=== PATIENT | female | born 1990 | race African-American/Black ===

== ENCOUNTER 2018-10-15 18:07 | Emergency (ER) | payer MEDICAID ==
[~2018-10-15] VITALS: Ht 172.7 cm; Wt 64.4 kg
[2018-10-15 18:39] VITALS: BP 105/64
[2018-10-15] MEDS ORDERED: LIDOCAINE 1% HCL (LOCAL ANESTH.) INJ 20ML MDV IJ ONE (19:45)
== END 2018-10-15 20:15 | disposition home or self-care (01) ==
LOC: ER 18:10
DX: N76.4 Abscess of vulva (principal); F12.10 Cannabis abuse, uncomplicated
CPT/HCPCS: 56405; 99284; J2001

== ENCOUNTER 2019-02-16 22:28 | Emergency (ER) | payer MEDICAID ==
[~2019-02-16] VITALS: Ht 172.7 cm; Wt 65.5 kg
[2019-02-16 22:38] VITALS: BP 139/67
== END 2019-02-17 04:00 | disposition left against medical advice (07) ==
LOC: ER 22:31
DX: R05 Cough (principal); J45.909 Unspecified asthma, uncomplicated; Z76.0 Encounter for issue of repeat prescription; Z53.21 Procedure and treatment not carried out due to patient leaving prior to being seen by health care provider

== ENCOUNTER 2025-04-06 20:30 | Emergency (ER) | payer MEDICAID ==
[~2025-04-06] VITALS: Ht 172.7 cm; Wt 78.6 kg
[2025-04-06 20:30] VITALS: BP 133/78; TEMP 98.7
[2025-04-06] MEDS ORDERED: ALBUAER3 IN (21:17)
[2025-04-06] MEDS ORDERED: PRED20TA2 PO (21:17)
--- NOTE | 2025-04-06 21:17 | ED.PDOC ---
SOB-HPI HPI Comments 35 year old female presents to ER with complaints of asthma exacerbation x 1 week. Patient with PMH of asthma, reports she has been experiencing intermittent episodes of shortness of breath x 1 week. Notes she has been using her albuterol inhaler with slight relief and denies any pain. Presents to ER ambulatory on arrival, with steady gait, in no distress with vitals stable. Denies fever, chest pain, palpitations, recent illness or any further symptoms/complaints Chief Complaint: Asthma Time Seen by MD: 20:50 Primary Care Provider: UNKNOWN Reviewed notes: Nurses Notes, Medications, Allergies Information Source: Patient Mode of Arrival: Ambulatory Past Medical History PAST MEDICAL HISTORY: Denies Surgical History: Denies all surgeries SHED HAND History: No Pertinent SHED HAND History Family History Family History: Unknown Social History Smoker: Non-Smoker Alcohol: Denies ETOH Use Drugs: Marijuana Lives In: Home Constitutional: denies: chills, diaphoresis, fatigue, fever, malaise, sweats, weakness, others EENTM: denies: blurred vision, double vision, ear bleeding, ear discharge, ear drainage, ear pain, ear ringing, eye pain, eye redness, hearing loss, mouth pain, mouth swelling, nasal discharge, nose bleeding, nose congestion, nose pain, photophobia, tearing, throat pain, throat swelling, voice changes, others Respiratory: reports: others (As stated in HPI) Cardiovascular: denies: chest pain, dizzy spells, diaphoresis, Dyspnea on exertion, edema, irregular heart beat, left arm pain, lightheadedness, palpitations, PND, syncope, others Gastrointestinal: denies: abdomen distended, abdominal pain, blood streaked bowels, constipated, diarrhea, dysphagia, difficulty swallowing, hematemesis, melena, nausea, poor appetite, poor fluid intake, rectal bleeding, rectal pain, vomiting, others Genitourinary: denies: abnormal vagina bleeding, burning, dyspareunia, dysuria, flank pain, frequency, hematuria, incontinence, pain, , vagina discharge, urgency, others Neurological: denies: dizziness, fainting, headache, left sided numbness, left sided weakness, numbness, paresthesia, pre-existing deficit, right sided numbness, right sided weakness, seizure, speech problems, tingling, tremors, weakness, others Musculoskeletal: denies: back pain, gout, joint pain, joint swelling, muscle pain, muscle stiffness, neck pain, others Integumetry: denies: bruises, change in color, change in hair/nails, dryness, laceration, lesions, lumps, rash, wounds, others Allergic/Immunocompromised: denies: Difficulty Healing, Frequent Infections, Hives, Itching, others Hematologic/Lymphatic: denies: anemia, blood clots, easy bleeding, easy bruising, swollen glands, others Endocrine: denies: excessive hunger, excessive sweating, excessive thirst, excessive urination, flushing, intolerance to cold, intolerance to heat, unexplained weight gain, unexplained weight loss, others Psychiatric: denies: anxiety, bipolar disorder, depression, hopeless, panic disorder, schizophrenia, sleepless, suicidal, others Physical Exam General Appearance: No Apparent Distress HEENT: Normal ENT Inspection, PERRL/EOMI, Pharynx Normal, TMs Normal Neck: Full Range of Motion, Non-Tender, Normal Respiratory: Chest Non-Tender, Decreased Breath Sounds (Slightly noted to bilateral upper lung nogueira), Lungs Clear, No Accessory Muscle Use, No Respiratory Distress Cardiovascular: No Murmur, No Gallop, Regular Rate/Rhythm Breast Exam: Deferred Gastrointestinal: NOT DONE Genitalia: Deferred Pelvic: Deferred Rectal: Deferred Extremities: Normal capillary refill, Normal range of motion Neurologic: Alert, No Motor Deficits, Normal Affect, Normal Mood, No Sensory Deficits Cerebellar Function: Normal Reflexes: Normal Skin: Dry, Normal Color, Warm Peripheral Pulses: 2+ carotid (R), 2+ carotid (L), 2+ Radial (R), 2+ Radial (L), 2+ Brachial (R), 2+ Brachial (L) Lymphatic: No Adenopathy Was a procedure done? Was a procedure done?: No Sedation Sedation?: No Differential Dx Differential Diagnosis: Pneumonia, Pulmonary Embolism, Respiratory Distress X-Ray, Labs, Meds, VS Vital Signs Date Time Temp Pulse Resp B/P (MAP) Pulse Ox O2 Delivery O2 Flow Rate FiO2 04/06/25 20:30 98.7 86 18 133/78 100 98.7 Duo nebulizer treatment ordered Patient had improvement in symptoms, denied any shortness of breath and in no distress prior to discharge Advised to drink plenty of fluids Advised to follow up with PCP in 1-2 days Patient verbalized understanding and agreeable with current plan of care Advised to return to ER immediately if symptoms worsen Time of 1ST Reevaluation: 20:54 Reevaluation 1ST: N/A Patient Education/Counseling: Diagnosis, Treatment, Prognosis, Need For Follow Up Family Education/Counseling: No Family Present SEPSIS Sepsis Screen Date sepsis recognized/suspect: Apr 06, 2025 Time Sepsis recognized/suspect: 2029 Recent Procedure: No On Antibiotic Therapy: No Respiratory Rate >20: No Heart Rate >90: No Temp<36 C (96.8 F) or >38.3 C: No SBP <90 or MAP <65 mmHG: No New Acute Mental Status Change: No Is the patient on CPAP, BIPAP,: No Vital Signs Date Time Temp Pulse Resp B/P (MAP) Pulse Ox O2 Delivery O2 Flow Rate FiO2 04/06/25 20:30 98.7 86 18 133/78 100 98.7 Departure 1 Departure Time of Disposition: 21:12 Impression: Primary Impression: Acute asthma exacerbation Qualified Codes: J45.21 - Mild intermittent asthma with (acute) exacerbation Disposition: 01 HOME / SELF CARE / HOMELESS Condition: Stable e-Prescriptions Prednisone (Prednisone) 20 Mg Tab 20 MG PO BID for 5 Days, #10 TAB 0 Refills Prov: ALEKSANDAR FIGUEROA 04/06/25 Albuterol Sulfate (VENTOLIN MDI) 90 Mcg Ih 2 PUFF IN Q6HPRN, #1 INH 0 Refills Prov: ALEKSANDAR FIGUEROA 04/06/25 Discharged With: Self Critical Care Note Critical Care Time?: No Stability Stability form required: No Heart Score Heart Score: Heart Score Response (Comments) Value History N/A 0 EKG N/A 0 Age N/A 0 Risk Factors N/A 0 Troponin N/A 0 Total 0 ALEKSANDAR FIGUEROA Apr 06, 2025 21:17
[2025-04-06] MEDS: IPRATROPIUM BROM 0.5 MG/2.5ML INH SOL NEB ONE (21:23)
[2025-04-06] MEDS: ALBUTEROL SULF 2.5 MG/0.5ML(0.5%) NEB SOLN NEB ONE (21:23)
[2025-04-06 21:53] VITALS: PULSE 91; RESP 18; O2SAT 99
== END 2025-04-06 21:56 | disposition home or self-care (01) ==
LOC: ER 20:30
DX: J45.901 Unspecified asthma with (acute) exacerbation (principal); Z79.899 Other long term (current) drug therapy
CPT/HCPCS: 94640

== ENCOUNTER 2025-04-09 14:31 | Inpatient (IN) | payer MEDICAID ==
[~2025-04-09] VITALS: Ht 172.7 cm; Wt 77.0 kg
[~2025-04-09 14:31] MED LIST: ALBUAER3 IN; PRED20TA2 PO
--- NOTE | 2025-04-09 15:33 | ED.PDOC ---
SOB-HPI HPI Comments This is a 35 year old female presenting to the ED with chief complaint of SOB. Patient reports that she has been experiencing SOB with associated chest tightness since last Saturday. Patient relays that she was seen on Saturday for the same complaint, however, even after a breathing treatment she did not have lasting relief. Patient denies any cough, fever, chills, headache, or N/V. Chief Complaint: Shortness of Breath Time Seen by MD: 15:32 Primary Care Provider: UNKNOWN Reviewed notes: Nurses Notes, Medications, Allergies Information Source: Patient Mode of Arrival: Ambulatory Severity: Moderate Timing: Hours Duration: Since onset Context: At Rest PE Risk Factors: None History of: None Prehospital treatment: None Modifying Factors: Nothing Quality: Tightness Radiation: No Radiation Past Medical History PAST MEDICAL HISTORY: Asthma Surgical History (Other): [employer]IATE History: No Pertinent [employer]IATE History Family History Family History: Reviewed,noncontributory to illness Social History Smoker: Non-Smoker Alcohol: Denies ETOH Use Drugs: Marijuana Lives In: Home Constitutional: denies: chills, diaphoresis, fatigue, fever, malaise, sweats, weakness, others EENTM: denies: blurred vision, double vision, ear bleeding, ear discharge, ear drainage, ear pain, ear ringing, eye pain, eye redness, hearing loss, mouth pain, mouth swelling, nasal discharge, nose bleeding, nose congestion, nose pa in, photophobia, tearing, throat pain, throat swelling, voice changes, others Respiratory: reports: shortness of breath; denies: cough, hemoptysis, orthopnea, SOB at rest, SOB with excertion, stridor, wheezing, others Cardiovascular: reports: chest pain; denies: dizzy spells, diaphoresis, Dyspnea on exertion, edema, irregular heart beat, left arm pain, lightheadedness, palpitations, PND, syncope, others Gastrointestinal: denies: abdomen distended, abdominal pain, blood streaked bowels, constipated, diarrhea, dysphagia, difficulty swallowing, hematemesis, melena, nausea, poor appetite, poor fluid intake, rectal bleeding, rectal pain, vomiting, others Genitourinary: denies: abnormal vagina bleeding, burning, dyspareunia, dysuria, flank pain, frequency, hematuria, incontinence, pain, , vagina discharge, urgency, others Neurological: denies: dizziness, fainting, headache, left sided numbness, left sided weakness, numbness, paresthesia, pre-existing deficit, right sided numbness, right sided weakness, seizure, speech problems, tingling, tremors, weakness, others Musculoskeletal: denies: back pain, gout, joint pain, joint swelling, muscle pain, muscle stiffness, neck pain, others Integumetry: denies: bruises, change in color, change in hair/nails, dryness, laceration, lesions, lumps, rash, wounds, others Allergic/Immunocompromised: denies: Difficulty Healing, Frequent Infections, Hives, Itching, others Hematologic/Lymphatic: denies: anemia, blood clots, easy bleeding, easy bruising, swollen glands, others Endocrine: denies: excessive hunger, excessive sweating, excessive thirst, excessive urination, flushing, intolerance to cold, intolerance to heat, unexplained weight gain, unexplained weight loss, others Psychiatric: denies: anxiety, bipolar disorder, depression, hopeless, panic disorder, schizophrenia, sleepless, suicidal, others All Other Systems: Reviewed and Negative Physical Exam General Appearance: Moderate Distress HEENT: Normal ENT Inspection, Pharynx Normal, TMs Normal Neck: Full Range of Motion, Non-Tender, Normal, Normal Inspection Respiratory: Chest Non-Tender, Lungs Clear, No Accessory Muscle Use, No Respiratory Distress, Normal Breath Sounds Cardiovascular: No Edema, No JVD, No Murmur, No Gallop, Normal Peripheral Pulses, Regular Rate/Rhythm Breast Exam: Deferred Gastrointestinal: No Organomegaly, Non Tender, No Pulsatile Mass, Normal Bowel Sounds, Soft Genitalia: Deferred Pelvic: Deferred Rectal: Deferred Extremities: No calf tenderness, Normal capillary refill, Normal inspection, Normal range of motion, Non-tender, No pedal edema Musculoskeletal : Apperance: Normal Neurologic: Alert, laborer heading II-XII nml as Tested, No Motor Deficits, Normal Affect, Normal Mood, No Sensory Deficits Cerebellar Function: Normal Reflexes: Normal Skin: Dry, Normal Color, Warm Lymphatic: No Adenopathy Was a procedure done? Was a procedure done?: No Differential Dx Differential Diagnosis: Asthma, Bronchitis, CHF, Pneumonia X-Ray, Labs, Meds, VS Vital Signs Date Time Temp Pulse Resp B/P (MAP) Pulse Ox O2 Delivery O2 Flow Rate FiO2 04/09/25 14:33 98.1 69 18 107/71 99 98.1 Lab Test 04/09/25 18:05 04/09/25 15:49 Range/Units Troponin I High Sensitivity 89 *H 79 *H </=34 ng/L White Blood Count 7.9 4.4-10.8 10^3/uL Red Blood Count 4.62 4.0-5.20 10^6/uL Hemoglobin 14.1 12.2-16.2 g/dL Hematocrit 42.3 36.0-46.0 % Mean Corpuscular Volume 91.5 80.0-100.0 fL Mean Corpuscular Hemoglobin 30.4 28.0-32.0 pg Mean Corpuscular Hemoglobin Concent 33.3 32.0-36.0 g/dL Red Cell Distribution Width 13.2 11.8-14.3 % Platelet Count 258 140-450 10^3/uL Mean Platelet Volume 8.8 6.9-10.8 fL Neutrophils (%) (Auto) 65.0 37.0-80.0 % Lymphocytes (%) (Auto) 28.5 10.0-50.0 % Monocytes (%) (Auto) 5.5 0.0-12.0 % Eosinophils (%) (Auto) 0.6 0.0-7.0 % Basophils (%) (Auto) 0.4 0.0-2.0 % Neutrophils # (Auto) 5.2 1.6-8.6 10 ^3/uL Lymphocytes # (Auto) 2.3 0.4-5.4 10 ^3/uL Monocytes # (Auto) 0.4 0-1.3 10 ^3/uL Eosinophils # (Auto) 0 0-0.8 10 ^3/uL Basophils # (Auto) 0 0-0.2 10 ^3/uL Nucleated Red Blood Cells 0.0 % D-Dimer, Quantitative < 0.19 0.0-0.49 mg/L FEU Sodium Level 140 136-145 mmol/L Potassium Level 4.0 3.5-5.1 mmol/L Chloride Level 109 H 98-107 mmol/L Carbon Dioxide Level 23 20-31 mmol/L Anion Gap 8 5-15 Blood Urea Nitrogen 8 L 9-23 mg/dL Creatinine 0.96 0.550-1.02 mg/dL Glomerular Filtration Rate Calc 80 >90 mL/min BUN/Creatinine Ratio 8.3 L 10.0-20.0 Serum Glucose 92 74-106 mg/dL Calcium Level 10.3 8.7-10.4 mg/dL Chest XR indicates: No acute cardiopulmonary disease. The patient's CBC is within normal limits The chemistry panel is within normal limits The D-dimer is within normal limits The patient's troponin level is 79 which is somewhat elevated The patient is being admitted at this time Images Reviewed?: Images reviewed and evaluated by me Time of 1ST Reevaluation: 19:00 Reevaluation 1ST: Unchanged Patient Education/Counseling: Diagnosis, Treatment, Prognosis Family Education/Counseling: No Family Present SEPSIS Sepsis Screen Date sepsis recognized/suspect: Apr 09, 2025 Time Sepsis recognized/suspect: 1435 Recent Procedure: No On Antibiotic Therapy: No Respiratory Rate >20: No Heart Rate >90: No Temp<36 C (96.8 F) or >38.3 C: No SBP <90 or MAP <65 mmHG: No New Acute Mental Status Change: No Is the patient on CPAP, BIPAP,: No Physician Orders Chest Two Views Routine (04/09/25 15:33) Heplock Iv (04/09/25 ) Troponin-I Hs (04/09/25 18:43) Heplock Iv (04/09/25 ) Electrocardigram (04/09/25 18:26) Electrocardigram (04/09/25 19:26) Electrocardigram (04/09/25 21:26) Vital Signs Date Time Temp Pulse Resp B/P (MAP) Pulse Ox O2 Delivery O2 Flow Rate FiO2 04/09/25 14:33 98.1 69 18 107/71 99 98.1 Laboratory Tests Test 04/09/25 15:49 White Blood Count 7.9 10^3/uL (4.4-10.8) Departure 1 Departure Time of Disposition: 19:01 Impression: Primary Impression: Generalized weakness Additional Impressions: Dyspnea Qualified Codes: R06.00 - Dyspnea, unspecified Elevated troponin Disposition: ADMITTED INPATIENT Admit to: [facility] Condition: Fair Critical Care Note Critical Care Time?: No Stability Stability form required: Yes Unstable for transfer: Telemetry monitoring (Telemetry monitoring required), ED Physician Assesment (Clinical assesment) Heart Score Heart Score: Heart Score Response (Comments) Value History N/A 0 EKG N/A 0 Age N/A 0 Risk Factors N/A 0 Troponin N/A 0 Total 0 I personally scribed for MARIBEL IBARRA MD ([email or web address]) on 04/09/25 at 15:33. Electronically submitted by Duran Villatoro ([email or web address]). I personally scribed for MARIBEL IBARRA MD ([email or web address]) on 04/09/25 at 17:57. Electronically submitted by Duran Villatoro ([email or web address]). MARIBEL IBARRA MD Apr 09, 2025 15:33
[2025-04-09 16:04] LABS: Hematocrit 42.3 % (36.0-46.0); Hemoglobin 14.1 g/dL (12.2-16.2); Mean Corpuscular Hemoglobin 30.4 pg (28.0-32.0); Mean Corpuscular Volume 91.5 fL (80.0-100.0); Nucleated Red Blood Cells % 0.0 %
--- NOTE | 2025-04-09 16:06 | DVH ---
XY CHEST TWO VIEWS ROUTINE CLINICAL HISTORY: sob COMPARISON: XR CHEST 2 VIEWS on DOS: 04/07/25, XR CHEST 2 VIEWS on DOS: 11/28/23 TECHNIQUE: Frontal and lateral view of the chest was obtained FINDINGS: Lines and Tubes: None Lungs: No focal consolidation. Pleura: No effusion. No pneumothorax. Cardiomediastinal contours: Unremarkable Bones: No acute osseous abnormality. IMPRESSION: No acute cardiopulmonary disease.
[2025-04-09 16:09] LABS: Potassium 4.0 mmol/L (3.5-5.1); Sodium 140 mmol/L (136-145)
[2025-04-09 16:10] LABS: Anion Gap 8 (5-15); Carbon Dioxide 23 mmol/L (20-31)
[2025-04-09 16:11] LABS: Calcium 10.3 mg/dL (8.7-10.4)
[2025-04-09 16:12] LABS: Chloride 109 mmol/L (98-107)
[2025-04-09 16:15] LABS: BUN/Creatinine Ratio 8.3 (10.0-20.0); Blood Urea Nitrogen 8 mg/dL (9-23); Glucose 92 mg/dL (74-106)
[2025-04-09] MEDS ORDERED: NITROGLYCERIN 0.4 MG SL TAB SL PRN (23:00)
[2025-04-09] MEDS ORDERED: MORPHINE SULFATE INJ 2 MG/ml SYRG IV PRN (23:00)
--- NOTE | 2025-04-09 23:50 | DVHHPRES ---
History of Present Illness Resident Creating Document: [place] BRITTON RESIDENT History of Present Illness History of Present Illness (HPI): Kaci Webster is a 35-year-old female with a known history of asthma who presented with complaints of shortness of breath and chest pain that has persisted for approximately one week. She describes the chest pain as sharp in nature, intermittent, and radiating to her left arm, with an intensity rated at 8 out of 10. She reports no specific aggravating or relieving factors. In addition to her respiratory symptoms, the patient notes a decreased appetite and expresses significant anxiety surrounding sleep, stating that she fears something might happen to her during the night and therefore attempts to stay awake. She denies experiencing fever, peripheral edema, or any recent contact with sick individuals. Notably, she mentions that her usual use of albuterol, which typically helps during asthma exacerbations, did not provide relief on this occasion. Past Medical History (PMH): asthma Past Surgical History (PSH): History of 4 abortions Family history (FH): History of hypertension in mother EtOH: Admits to occasional alcohol use Smoking /Vaping: Denies smoking Recreational Drugs: Admits to occasional marijuana use Residence: Lives with family Home Medications: Albuterol p.r.n. Allergies: No known allergies PCP: Dr. Richadrs Specialist relevant to admission: Cardiology Review of Systems Review of Systems General: patient denies fever, fatigue, weaknes, sweating. Complains of decreased appetite HEENT: No headaches, visiual changes, hearing loss, tinnitus, nasal congestion and discharge, and sore throat. Cardiovascular: Complains of chest pain and shortness of Breath Respiratory: No cough, and wheezing. Gastrointestinal: Denies nausea, vomiting, dysphagia, odynophagia, heartburn, abdominal pain, flatulence, bloating, diarrhea, constipation, change in stool, or blood in stool. Genitourinary: No dysuria, hematuria, discharge, frequency, urgency, nocturia, incontinence, and urinary retention. Endocrine: No heat or cold intolerance, polydipsia, polyuria, and polyphagia. Neurological: No dizziness, extremity weakness and numbness, tremors, gait disturbance, seizures, and memory impairment. Psychiatric: Denies depression, anxiety,or insomnia. Musculoskeletal: Denies neck pain, stiffness and swelling, back pain, muscle weakness, joint pain, stiffness, swelling, or limited range of motion. Skin: No rashes, itching, skin lesion, changes in hair, nail, skin texture and breast. Hematologic/Lymphatic: Denies easy bruising, bleeding tendencies, or lymph node enlargement. Allergies: Coded Allergies: NO KNOWN ALLERGIES (Unverified , 11/10/14) Medications Current Medications Medications Dose Ordered Sig/Linda Route Start Time Stop Time Status Last Admin Dose Admin Nitroglycerin 0.4 mg Q5MINP PRN SL 04/09/25 23:00 Morphine Sulfate 2 mg Q30M PRN IV 04/09/25 23:00 Exam Vital Signs Vital Signs Date Time Temp Pulse Resp B/P (MAP) Pulse Ox O2 Delivery O2 Flow Rate FiO2 04/09/25 22:48 98.5 70 18 120/79 (93) 98 98.5 04/09/25 19:49 Room Air Exam General Appearance: Alert, Oriented X3, Cooperative, No acute distress HEENT: Atraumatic, PERRLA, EOMI, Mucous membrane moist/pink Respiratory: Clear to auscultation, Normal air movement Cardiovascular: Regular rate, Normal S1, Normal S2, No murmurs, chest wall tenderness present Abdominal: Normal bowel sounds, Soft, No tenderness, No hepatospenomegaly, No masses Extremities: No clubbing, No cyanosis, No edema, Normal pulses, No tenderness/swelling Skin: No rashes, No breakdown, No significant lesion Neuro: Normal gait, Normal speech, Strength at 5/5 X4 ext, Normal tone, Sensation intact, Cranial nerves 3-12 NL, Reflexes 2+ Psych/Mental Status: Mental status NL, Mood NL Labs/Xrays Labs Test 04/09/25 20:10 04/09/25 15:49 Range/Units Troponin I High Sensitivity 81 *H </=34 ng/L White Blood Count 7.9 4.4-10.8 10^3/uL Red Blood Count 4.62 4.0-5.20 10^6/uL Hemoglobin 14.1 12.2-16.2 g/dL Hematocrit 42.3 36.0-46.0 % Mean Corpuscular Volume 91.5 80.0-100.0 fL Mean Corpuscular Hemoglobin 30.4 28.0-32.0 pg Mean Corpuscular Hemoglobin Concent 33.3 32.0-36.0 g/dL Red Cell Distribution Width 13.2 11.8-14.3 % Platelet Count 258 140-450 10^3/uL Mean Platelet Volume 8.8 6.9-10.8 fL Neutrophils (%) (Auto) 65.0 37.0-80.0 % Lymphocytes (%) (Auto) 28.5 10.0-50.0 % Monocytes (%) (Auto) 5.5 0.0-12.0 % Eosinophils (%) (Auto) 0.6 0.0-7.0 % Basophils (%) (Auto) 0.4 0.0-2.0 % Neutrophils # (Auto) 5.2 1.6-8.6 10 ^3/uL Lymphocytes # (Auto) 2.3 0.4-5.4 10 ^3/uL Monocytes # (Auto) 0.4 0-1.3 10 ^3/uL Eosinophils # (Auto) 0 0-0.8 10 ^3/uL Basophils # (Auto) 0 0-0.2 10 ^3/uL Nucleated Red Blood Cells 0.0 % D-Dimer, Quantitative < 0.19 0.0-0.49 mg/L FEU Sodium Level 140 136-145 mmol/L Potassium Level 4.0 3.5-5.1 mmol/L Chloride Level 109 H 98-107 mmol/L Carbon Dioxide Level 23 20-31 mmol/L Anion Gap 8 5-15 Blood Urea Nitrogen 8 L 9-23 mg/dL Creatinine 0.96 0.550-1.02 mg/dL Glomerular Filtration Rate Calc 80 >90 mL/min BUN/Creatinine Ratio 8.3 L 10.0-20.0 Serum Glucose 92 74-106 mg/dL Calcium Level 10.3 8.7-10.4 mg/dL SEPSIS Sepsis Screen Date sepsis recognized/suspect: Apr 09, 2025 Time Sepsis recognized/suspect: 1949 Recent Procedure: No On Antibiotic Therapy: No Respiratory Rate >20: No Heart Rate >90: No Temp<36 C (96.8 F) or >38.3 C: No SBP <90 or MAP <65 mmHG: No New Acute Mental Status Change: No Is the patient on CPAP, BIPAP,: No Physician Orders Heplock Iv (04/09/25 ) Heplock Iv (04/09/25 ) Electrocardigram (04/09/25 18:26) Electrocardigram (04/09/25 19:26) Electrocardigram (04/09/25 21:26) Admit (04/09/25 22:54) Nitroglycerin Sublingual (Ntrostat Subli (04/09/25 23:00) Morphine Sulfate Injection (04/09/25 23:00) Oxygen By Nasal Cannula (04/09/25 22:54) Stat Ekg For Chest Pain (04/09/25 22:54) Notify Md Of Changes From Base (04/09/25 22:54) Manager [employer] For 24 Hours (04/09/25 22:54) Emergency Dysrhythmia Protocol (04/09/25 22:54) Rhythm Strips Once Every Shift (04/09/25 22:54) Electrocardigram (04/09/25 23:14) Communication Order (04/09/25 23:14) Vital Signs Date Time Temp Pulse Resp B/P (MAP) Pulse Ox O2 Delivery O2 Flow Rate FiO2 04/09/25 22:48 98.5 70 18 120/79 (93) 98 98.5 04/09/25 19:49 61 20 100 Room Air 04/09/25 19:49 98.1 61 20 121/78 (92) 100 98.1 Laboratory Tests Test 04/09/25 15:49 White Blood Count 7.9 10^3/uL (4.4-10.8) Assessment/Plan Assessment/Plan Assessment and plan # Pericarditis - Elevated troponins - Cardiology consult - Follow Echo - Pain Medications - Follow ESR CRP results - Follow MILLIE results, if positive consider autoimmune workup # History of asthma - Albuterol and ipratropium nebulization - Outpatient follow up with PCP on discharge PUD prophylaxis: not needed DVT prophylaxis: brisk movement. Barriers to discharge: Medical diagnosis and management in progress. Patient lives with family. Independent for ADL. PCP: Dr. Richards Specialist Relevant To Admission: Cardiology Case discussed with Dr. Sanchez. Code Status: Full Code. Complex patient care discussion needed. Spend total 37 minutes for bedside assessment, case discussion and management. Plan discussed with: Patient My Orders Orders - [place] BRITTON RESIDENT Procedure Category Date Status Time Electrocardigram EKG 04/09/25 Logged 23:14 Communication Order ORDERS 04/09/25 Transmitted 23:14 Date of Service: Apr 09, 2025 Billing Provider: VERÓNICA SANCHEZ MD Common Visit Codes: 60337-OACWPPP INP/OBS CARE (HIGH) Secondary Visit Codes: 60209-[id number] CARE PLAN 30 MINUTES VIR[place]IA BRITTON RESIDENT Apr 09, 2025 23:50
[2025-04-10] VITALS (9 sets, daily range): BP systolic 93–129; BP diastolic 54–87; PULSE 52–66; RESP 14–20; TEMP 97.9–98; O2SAT 96–100
--- NOTE | 2025-04-10 04:19 | ECG ---
[facility] Test Date: 2025-04-10 Test Time: 00:25:56 Pat Name: ALVARO LANE Department: ED Room: 0286T Gender: F Pca: SCARLETT : 1990 Requested By: SEAN ORNELAS Order Number: [id number] Reading MD: Tomy Trujillo Measurements Intervals Reagan Rate: 48 P: 52 CA: 138 QRS: 70 QRSD: 101 T: 72 QT: 446 QTc: 399 Interpretive Statements Sinus bradycardia Electronically Signed On 04-12-2025 18:49:38 PDT by Tomy Trujillo Please click the below link to view image of tracing.
[2025-04-10] MEDS ORDERED: IPRATROPIUM BROM 0.5 MG/2.5ML INH SOL NEB PRN (04:30)
[2025-04-10] MEDS ORDERED: ALBUTEROL SULF 2.5 MG/0.5ML(0.5%) NEB SOLN NEB PRN (04:30)
[2025-04-10 04:39] LABS: Hematocrit 40.5 % (36.0-46.0); Hemoglobin 13.6 g/dL (12.2-16.2); Mean Corpuscular Hemoglobin 30.5 pg (28.0-32.0); Mean Corpuscular Volume 91.0 fL (80.0-100.0); Nucleated Red Blood Cells % 0.1 %
[2025-04-10 04:51] LABS: Alanine Aminotransferase 11 U/L (7-40); Albumin 4.8 g/dL (3.2-4.8); Anion Gap 6 (5-15); BUN/Creatinine Ratio 8.0 (10.0-20.0); Calcium 9.9 mg/dL (8.7-10.4); Carbon Dioxide 24 mmol/L (20-31); Glucose 98 mg/dL (74-106); Potassium 4.1 mmol/L (3.5-5.1); Sodium 141 mmol/L (136-145)
[2025-04-10 04:52] LABS: Bilirubin, Total 0.7 mg/dL (0.2-1.0)
[2025-04-10 04:59] LABS: Alkaline Phosphatase 32 U/L (46-116); Blood Urea Nitrogen 8 mg/dL (9-23); Chloride 111 mmol/L (98-107); Total Protein 8.3 g/dL (5.7-8.2)
[2025-04-10 08:34] LABS: Triglycerides 131 mg/dL (< 150)
[2025-04-10 08:35] LABS: Cholesterol 190 mg/dL (< 200)
[2025-04-10 08:36] LABS: HDL Cholesterol 55 mg/dL (40-59)
--- NOTE | 2025-04-10 09:53 | DVHINCON2 ---
Date Seen: Apr 10, [address] Jones Reason for Consultation Elevated troponin History of Present Illness 35-year-old female with past medical history of asthma presents to the ED with shortness of breath and chest pain for one week. She describes the chest pain as a pressure-like sensation, "like something sitting on her chest." Radiating to the left arm, lasting 10-20 minutes, associated with shortness of breath. The pain improved initially with pacing and movement but reoccurred the following day and has since persisted, now associated with palpitations. She reports progressive worsening of both chest pain, palpitations and SOB, prompting her visitED visit. She denies fever, cough, hemoptysis, leg swelling, recent immobilization, or recent illness. She denies tobacco use, but endorses marijuana use last dose 2-3 weeks ago. She denies family history of premature CAD or [place]. Past Medical History Asthma Past Surgical History Denies Family History: Hypertension G8 MOTHER Family History Reviewed, non-contributory to the management of this case. Social History Admits to marijuana use Denies tobacco or ETOH abuse Allergies: Coded Allergies: NO KNOWN ALLERGIES (Unverified , 11/10/14) Home Meds Active Scripts Prednisone (Prednisone) 20 Mg Tab, 20 MG PO BID for 5 Days, #10 TAB 0 Refills Prov:ALEKSANDAR FIGUEROA 04/06/25 Albuterol Sulfate (VENTOLIN MDI) 90 Mcg Ih, 2 PUFF IN Q6HPRN, #1 INH 0 Refills Prov:ALEKSANDAR FIGUEROA 04/06/25 Current Medications Current Medications Medications (Trade) Dose Ordered Sig/Linda Route PRN Reason Start Time Stop Time Status Last Admin Nitroglycerin (Ntrostat Sublingual) 0.4 mg Q5MINP PRN SL FOR CHEST PAIN 04/09/25 23:00 Morphine Sulfate 2 mg Q30M PRN IV FOR CHEST PAIN 04/09/25 23:00 Ipratropium [place] (Atrovent Medneb) 0.5 mg Q4HPRN PRN NEB SHORTNESS OF BREATH 04/10/25 04:30 Albuterol (Ventolin Medneb) 2.5 mg Q4HPRN PRN NEB SHORTNESS OF BREATH 04/10/25 04:30 Review of Systems Constitutional: No symptom reported Ears, Nose, & Throat: No symptom reported Eyes: No symptom reported Neurological: No symptoms reported Pulmonary/Respiratory: Shortness of breath Cardiovascular: Chest pain, palpitation Gastrointestinal: No symptom reported Genitourinary: No symptom reported Musculoskeletal: No symptom reported Skin: No symptom reported Psychiatric: No symptom reported Endocrine: No symptom reported Hematologic/Lymphatic: No symptom reported Vital Signs Vital Signs Date Time Temp Pulse Resp B/P (MAP) Pulse Ox O2 Delivery O2 Flow Rate FiO2 04/10/25 09:14 98.0 60 14 93/54 98 21 98.0 04/10/25 05:27 Room Air* 0 Physical Exam INITIAL VITAL SIGNS: Reviewed by me GENERAL: Alert and interactive. No acute distress. HEAD: Head is normocephalic and atraumatic. EYES: EOMI, PERRL. No scleral icterus. No conjunctival injection. ENT: Moist mucous membranes. NECK: Supple, No masses, Full range of motion. RESPIRATORY: No tachypnea. Clear breath sounds bilaterally. No wheezing, rales, rhonchi. CV: Regular rate and rhythm. No murmurs, rubs, or gallops. GI/: Active bowel sounds, soft, nondistended, nontender. No guarding. No rebound. No masses. No CVA tenderness. INTEGUMENTARY: Warm and dry. No obvious rashes. NEUROLOGIC: Alert and oriented. Face is symmetric. Speech is normal. Moves all extremities equally. Labs/Diagnostic Data Labs Test 04/10/25 04:07 04/10/25 01:51 04/10/25 01:40 04/09/25 15:49 Range/Units White Blood Count 8.1 4.4-10.8 10^3/uL Red Blood Count 4.45 4.0-5.20 10^6/uL Hemoglobin 13.6 12.2-16.2 g/dL Hematocrit 40.5 36.0-46.0 % Mean Corpuscular Volume 91.0 80.0-100.0 fL Mean Corpuscular Hemoglobin 30.5 28.0-32.0 pg Mean Corpuscular Hemoglobin Concent 33.5 32.0-36.0 g/dL Red Cell Distribution Width 13.1 11.8-14.3 % Platelet Count 237 140-450 10^3/uL Mean Platelet Volume 9.0 6.9-10.8 fL Neutrophils (%) (Auto) 56.5 37.0-80.0 % Lymphocytes (%) (Auto) 32.6 10.0-50.0 % Monocytes (%) (Auto) 9.3 0.0-12.0 % Eosinophils (%) (Auto) 1.0 0.0-7.0 % Basophils (%) (Auto) 0.6 0.0-2.0 % Neutrophils # (Auto) 4.5 1.6-8.6 10 ^3/uL Lymphocytes # (Auto) 2.6 0.4-5.4 10 ^3/uL Monocytes # (Auto) 0.7 0-1.3 10 ^3/uL Eosinophils # (Auto) 0.1 0-0.8 10 ^3/uL Basophils # (Auto) 0.1 0-0.2 10 ^3/uL Nucleated Red Blood Cells 0.1 % Erythrocyte Sedimentation Rate 4 0-20 mm/hr Sodium Level 141 136-145 mmol/L Potassium Level 4.1 3.5-5.1 mmol/L Chloride Level 111 H 98-107 mmol/L Carbon Dioxide Level 24 20-31 mmol/L Anion Gap 6 5-15 Blood Urea Nitrogen 8 L 9-23 mg/dL Creatinine 1.00 0.550-1.02 mg/dL Glomerular Filtration Rate Calc 76 >90 mL/min BUN/Creatinine Ratio 8.0 L 10.0-20.0 Serum Glucose 98 74-106 mg/dL Calcium Level 9.9 8.7-10.4 mg/dL Total Bilirubin 0.7 0.2-1.0 mg/dL Aspartate Amino Transferase (AST) 18 13-40 U/L Alanine Aminotransferase (ALT) 11 7-40 U/L Alkaline Phosphatase 32 L 46-116 U/L C-Reactive Protein High Sensitivity < 0.02 <1.0 mg/dL B-Type Natriuretic Peptide 5.23 0-100 pg/mL Total Protein 8.3 H 5.7-8.2 g/dL Albumin 4.8 3.2-4.8 g/dL Troponin I High Sensitivity 81 *H </=34 ng/L Triglycerides Level 131 < 150 mg/dL Cholesterol Level 190 < 200 mg/dL LDL Cholesterol 124 H < 100 mg/dL HDL Cholesterol 55 40-59 mg/dL Thyroid Stimulating Hormone (TSH) 1.32 0.55-4.78 uIU/mL D-Dimer, Quantitative < 0.19 0.0-0.49 mg/L FEU PROCEDURE(s): CXR2 - CHEST TWO VIEWS ROUTINE REASON: sob ORDER NUMBER(s): [id number], ACCESSION NUMBER(s): [id number] CHEST TWO VIEWS ROUTINE CLINICAL HISTORY: sob COMPARISON: XR CHEST 2 VIEWS on DOS: 04/07/25, XR CHEST 2 VIEWS on DOS: 11/28/23 TECHNIQUE: Frontal and lateral view of the chest was obtained FINDINGS: Lines and Tubes: None Lungs: No focal consolidation. Pleura: No effusion. No pneumothorax. Cardiomediastinal contours: Unremarkable Bones: No acute osseous abnormality. IMPRESSION: No acute cardiopulmonary disease. Assessment # Chest pain to rule out CAD--HEART score 2, ANUPAM score 2 # NSTEMI, possible myocarditis # Sinus bradycardia # Hyperlipidemia # Asthma # Marijuana use Plan/Recommendation (Dr. Davila): * Echocardiogram to assess LV function, wall motion abnormalities or structural disease * ACS protocol--aspirin, statins, Lovenox * We will schedule for Stress test on Saturday * Continue to monitor ECG, telemetry * Check lipid panel, TSH, A1c, UA, and UDS * Counseled on marijuana use * Avoid caffeine use This medical document was created using an electronic medical record system with voice recognition software and computerized dictation system. Although this document has been carefully reviewed, there might still be some phonetic and typographical errors. Occasional wrong-word or ``sound-alike substitutions may have occurred due to the inherent limitations of voice recognition software. These areas are purely typographical due to imperfections of the software pro grams and do not reflect any compromise in the patient's medical care. Please read the chart carefully and recognize, using context, where these substitutions have occurred. Plan discussed with: Patient Plan discussed with: Patient, Other (RN) NYHA Physical activity limitations: NA Date of Service: Apr 10, 2025 Billing Provider: MALI DAVILA MD Cardiology Common Codes: CONSULT ONLY Cardiology Consultation Codes: [id number] CONSULT <45MIN BARNEY QUINONES TEST ENG Apr 10, 2025 09:53
[2025-04-10 10:16] LABS: Urine Protein, UAD 1+ (Negative)
[2025-04-10 10:28] LABS: Benzodiazephine Screen, Urine Pos (NEGATIVE)
[2025-04-10 10:29] LABS: Cannabinoid Screen, Urine Pos (NEGATIVE)
[2025-04-10 10:42] LABS: Amphetamine Screen, Urine Neg (NEGATIVE); Barbiturate Scree,Urine Neg (NEGATIVE); Cocaine Screen, Urine Neg (NEGATIVE); Opiate Scree,Urine Neg (NEGATIVE); Phencyclidine Screen, Urine Neg (NEGATIVE)
[2025-04-10] MEDS: ENOXAPARIN SOD 80 MG/0.8ML SYRINGE SC SCH (11:06)
--- NOTE | 2025-04-10 12:53 | DVHPN2 ---
Subjective Patient continues to have intermittent substernal chest pressure. Reviewed: H&P, Labs, Medications Changes from previous H/P or p: No Changes General: Per HPI Objective Vitals Vital Signs Date Time Temp Pulse Resp B/P (MAP) Pulse Ox O2 Delivery O2 Flow Rate FiO2 04/10/25 12:00 70 04/10/25 09:14 98.0 14 93/54 98 21 98.0 04/10/25 05:27 Room Air* 0 General Appearance: Alert, Oriented X3, Cooperative, mild distress HEENT: Atraumatic, PERRLA Lungs: Clear to auscultation, Normal air movement Cardiovascular: Normal S1, Normal S2 Abdomen: Normal bowel sounds, Soft, No tenderness Musculoskeletal: Normal sensory function, Normal motor function Extremities: No clubbing, No cyanosis, No edema, Normal pulses Neuro: Normal speech Skin: Dry, Intact Psych/Mental Status: Mental status NL, Mood NL Medications Current Medications Medications Dose Ordered Sig/Linda Route Start Time Stop Time Status Last Admin Dose Admin Nitroglycerin 0.4 mg Q5MINP PRN SL 04/09/25 23:00 Morphine Sulfate 2 mg Q30M PRN IV 04/09/25 23:00 Ipratropium [place] 0.5 mg Q4HPRN PRN NEB 04/10/25 04:30 Albuterol 2.5 mg Q4HPRN PRN NEB 04/10/25 04:30 Aspirin 81 mg DAILY PO 04/10/25 10:00 04/10/25 11:06 81 MG Atorvastatin Calcium 40 mg HS PO 04/10/25 22:00 Enoxaparin Sodium 80 mg Q12HR SC 04/10/25 10:09 04/10/25 11:06 80 MG Laboratory Results Laboratory Tests 04/10/25 04:07 Chemistry Test 04/09/25 15:49 04/10/25 04:07 Calcium Level 10.3 mg/dL (8.7-10.4) 9.9 mg/dL (8.7-10.4) Albumin 4.8 g/dL (3.2-4.8) Total Protein 8.3 g/dL (5.7-8.2) H Coagulation Test 04/09/25 15:49 D-Dimer, Quantitative < 0.19 mg/L FEU (0.0-0.49) Lipid panel Test 04/10/25 01:40 Cholesterol Level 190 mg/dL (< 200) HDL Cholesterol 55 mg/dL (40-59) Triglycerides Level 131 mg/dL (< 150) Cardiac Markers Test 04/10/25 04:07 B-Type Natriuretic Peptide 5.23 pg/mL (0-100) LFT Test 04/10/25 04:07 Alanine Aminotransferase (ALT) 11 U/L (7-40) Alkaline Phosphatase 32 U/L (46-116) L Aspartate Amino Transferase (AST) 18 U/L (13-40) Total Bilirubin 0.7 mg/dL (0.2-1.0) HgA1c, TSH Test 04/10/25 01:40 04/10/25 04:07 Thyroid Stimulating Hormone (TSH) 1.32 uIU/mL (0.55-4.78) Hemoglobin A1c 4.8 % A1C (<5.7) Urinalysis Test 04/10/25 09:45 Urine Color Yellow (Yellow) Urine Clarity Turbid (Clear) H Urine pH 5.5 (5.0-9.0) Urine Specific [place] 1.034 (1.001-1.035) Urine Protein 1+ (Negative) H Urine Ketones Trace (Negative) Urine Blood 2+ /uL (Negative) H Urine Nitrite Negative (Negative) Urine Bilirubin Negative (Negative) Urine Urobilinogen 2 mg/dL (Negative) H Urine Leukocyte Esterase Negative /uL (Negative) Urine RBC 13 /hpf (0 - 4) Urine Microscopic WBC 7 /HPF (0-5) H Urine Squamous Epithelial Cells Mod /hpf (<5) Urine Bacteria Few /hpf (None Seen) H Urine Mucus Few (None Seen) Urine Glucose Normal mg/dL (Normal) Urine Test Negative (Negative) Labs and/or images reviewed: Labs reviewed by me, Image(s) reviewed by me Assessment/Plan Assessment/Plan Impression: -probable NSTEMI type 2 -rule out pericarditis -cannabinoid use -history of asthma Plan: -discussion made with the patient regarding her recent symptoms. Patient denies having any cold or flu-like symptoms. Patient does report having intermittent palpitations since the onset of symptoms approximately one week ago. -cardiology consultation: Recommendations reviewed. Plans for treadmill stress test. Patient placed on full-dose anticoagulation -bronchodilators p.r.n. -further course of care per findings of echocardiogram, telemetry monitoring Total time spent with patient discussing and formulating plan of care: 35 minutes. This medical document was created using an electronic medical record system with [id number] dictation system. Although this document has been carefully reviewed, there may still be some phonetic and typographical errors. These areas are purely typographical due to imperfections of the software programs, and do not reflect any compromise in the patient's medical care. Plan discussed with: Patient, Other (RN) Date of Service: Apr 10, 2025 Billing Provider: BOBBY RENEE NP Common Visit Codes: [id number] INP/OBS CARE(HIGH) BOBBY RENEE NP Apr 10, 2025 12:53
--- NOTE | 2025-04-10 14:30 | DVHSR ---
APPROVED REPORT EXAM: Two-dimensional and M-mode echocardiogram with Doppler and color Doppler. Blood Pressure: 93/54 mmHg INDICATION Chest Pain RISK FACTORS Height: 5' 8", Weight: 175 DIMENSIONS LVDd4.3 (3.8-5.7cm)LA (2D)3.5 (1.9-4.0cm)Aortic Root3.3 (2.0-3.7cm) LVDs3.1 (2.5-4.0cm)LA (MM) (1.9-4.0cm)Aortic Cusp Exc1.9 (1.5-2.0cm) EF (%) 55.0 (55-70%)Rt. Atrium4.0 (1.9-4.0cm)Asc. 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 CORRELATE CLINICALLY LV EF IS 55% NORMAL VALVES NO EFFUSION
--- NOTE | 2025-04-10 19:56 | DVHINCON2 ---
Date Seen: Apr 10, [address] Jones Reason for Consultation Elevated troponin History of Present Illness This is a 35-year-old female with a past medical history of asthma who presents to the ED with complaints of shortness of breath and chest pain for one week. She describes the chest pain as a pressure-like sensation, "like something sitting on her chest." Radiating to the left arm, lasting 10-20 minutes, associated with shortness of breath. The pain improved initially with pacing and movement but reoccurred the following day and has since persisted, now associated with palpitations. She reports progressive worsening of both chest pain, palpitations and SOB, prompting her ED visit. She denies fever, cough, hemoptysis, leg swelling, recent immobilization, or recent illness. She denies tobacco use, but endorses marijuana use last dose 2-3 weeks ago. She denies family history of premature CAD or [place]. Troponin 81. Chest x-ray shows NAD. Patient was admitted to the hospital. I am asked to consult on this patient. Past Medical History Asthma Past Surgical History Denies Family History: Hypertension G8 MOTHER Allergies: Coded Allergies: NO KNOWN ALLERGIES (Unverified , 11/10/14) Home Meds Active Scripts Prednisone (Prednisone) 20 Mg Tab, 20 MG PO BID for 5 Days, #10 TAB 0 Refills Prov:ALEKSANDAR FIGUEROA 04/06/25 Albuterol Sulfate (VENTOLIN MDI) 90 Mcg Ih, 2 PUFF IN Q6HPRN, #1 INH 0 Refills Prov:ALEKSANDAR FIGUEROA 04/06/25 Current Medications Current Medications Medications (Trade) Dose Ordered Sig/Linda Route PRN Reason Start Time Stop Time Status Last Admin Nitroglycerin (Ntrostat Sublingual) 0.4 mg Q5MINP PRN SL FOR CHEST PAIN 04/09/25 23:00 Morphine Sulfate 2 mg Q30M PRN IV FOR CHEST PAIN 04/09/25 23:00 Ipratropium [employer] (Atrovent Medneb) 0.5 mg Q4HPRN PRN NEB SHORTNESS OF BREATH 04/10/25 04:30 Albuterol (Ventolin Medneb) 2.5 mg Q4HPRN PRN NEB SHORTNESS OF BREATH 04/10/25 04:30 Aspirin 81 mg DAILY PO 04/10/25 10:00 04/10/25 11:06 Atorvastatin Calcium (Lipitor) 40 mg HS PO 04/10/25 22:00 Enoxaparin Sodium (Lovenox) 80 mg Q12HR SC 04/10/25 10:09 04/10/25 11:06 Review of Systems Constitutional: No symptom reported Ears, Nose, & Throat: No symptom reported Eyes: No symptom reported Neurological: No symptoms reported Pulmonary/Respiratory: Shortness of breath Cardiovascular: Chest pain, palpitation Gastrointestinal: No symptom reported Genitourinary: No symptom reported Musculoskeletal: No symptom reported Skin: No symptom reported Psychiatric: No symptom reported Endocrine: No symptom reported Hematologic/Lymphatic: No symptom reported Vital Signs Vital Signs Date Time Temp Pulse Resp B/P (MAP) Pulse Ox O2 Delivery O2 Flow Rate FiO2 04/10/25 09:14 98.0 60 14 93/54 98 21 98.0 04/10/25 05:27 Room Air* 0 Physical Exam GENERAL: Alert and oriented x 3. No acute distress. EYES: PERRL, EOMI. Anicteric. HENT: Moist mucous membranes. LUNGS: Clear to auscultation bilaterally. CARDIOVASCULAR: Regular rate and rhythm. ABDOMEN: Soft, nontender and nondistended. EXTREMITIES: No edema. NEUROLOGIC: No focal neurological deficits. SKIN: Warm, dry. Labs/Diagnostic Data Labs Test 04/10/25 09:45 04/10/25 04:07 04/10/25 01:51 04/10/25 01:40 Range/Units Urine Color Yellow Yellow Urine Clarity Turbid H Clear Urine pH 5.5 5.0-9.0 Urine Specific [place] 1.034 1.001-1.035 Urine Protein 1+ H Negative Urine Ketones Trace Negative Urine Blood 2+ H Negative /uL Urine Nitrite Negative Negative Urine Bilirubin Negative Negative Urine Urobilinogen 2 H Negative mg/dL Urine Leukocyte Esterase Negative Negative /uL Urine RBC 13 0 - 4 /hpf Urine Microscopic WBC 7 H 0-5 /HPF Urine Squamous Epithelial Cells Mod <5 /hpf Urine Bacteria Few H None Seen /hpf Urine Mucus Few None Seen Urine Glucose Normal Normal mg/dL Urine Test Negative Negative Urine Opiates Screen Neg NEGATIVE Urine Fentanyl Screen Neg NEGATIVE Urine Barbiturates Screen Neg NEGATIVE Urine Phencyclidine Screen Neg NEGATIVE Urine Amphetamines Screen Neg NEGATIVE Urine Benzodiazepines Screen Pos NEGATIVE Urine Cocaine Screen Neg NEGATIVE Urine Cannabinoids Screen Pos NEGATIVE White Blood Count 8.1 4.4-10.8 10^3/uL Red Blood Count 4.45 4.0-5.20 10^6/uL Hemoglobin 13.6 12.2-16.2 g/dL Hematocrit 40.5 36.0-46.0 % Mean Corpuscular Volume 91.0 80.0-100.0 fL Mean Corpuscular Hemoglobin 30.5 28.0-32.0 pg Mean Corpuscular Hemoglobin Concent 33.5 32.0-36.0 g/dL Red Cell Distribution Width 13.1 11.8-14.3 % Platelet Count 237 140-450 10^3/uL Mean Platelet Volume 9.0 6.9-10.8 fL Neutrophils (%) (Auto) 56.5 37.0-80.0 % Lymphocytes (%) (Auto) 32.6 10.0-50.0 % Monocytes (%) (Auto) 9.3 0.0-12.0 % Eosinophils (%) (Auto) 1.0 0.0-7.0 % Basophils (%) (Auto) 0.6 0.0-2.0 % Neutrophils # (Auto) 4.5 1.6-8.6 10 ^3/uL Lymphocytes # (Auto) 2.6 0.4-5.4 10 ^3/uL Monocytes # (Auto) 0.7 0-1.3 10 ^3/uL Eosinophils # (Auto) 0.1 0-0.8 10 ^3/uL Basophils # (Auto) 0.1 0-0.2 10 ^3/uL Nucleated Red Blood Cells 0.1 % Erythrocyte Sedimentation Rate 4 0-20 mm/hr Sodium Level 141 136-145 mmol/L Potassium Level 4.1 3.5-5.1 mmol/L Chloride Level 111 H 98-107 mmol/L Carbon Dioxide Level 24 20-31 mmol/L Anion Gap 6 5-15 Blood Urea Nitrogen 8 L 9-23 mg/dL Creatinine 1.00 0.550-1.02 mg/dL Glomerular Filtration Rate Calc 76 >90 mL/min BUN/Creatinine Ratio 8.0 L 10.0-20.0 Serum Glucose 98 74-106 mg/dL Hemoglobin A1c 4.8 <5.7 % A1C Calcium Level 9.9 8.7-10.4 mg/dL Total Bilirubin 0.7 0.2-1.0 mg/dL Aspartate Amino Transferase (AST) 18 13-40 U/L Alanine Aminotransferase (ALT) 11 7-40 U/L Alkaline Phosphatase 32 L 46-116 U/L C-Reactive Protein High Sensitivity < 0.02 <1.0 mg/dL B-Type Natriuretic Peptide 5.23 0-100 pg/mL Total Protein 8.3 H 5.7-8.2 g/dL Albumin 4.8 3.2-4.8 g/dL Troponin I High Sensitivity 81 *H </=34 ng/L Triglycerides Level 131 < 150 mg/dL Cholesterol Level 190 < 200 mg/dL LDL Cholesterol 124 H < 100 mg/dL HDL Cholesterol 55 40-59 mg/dL Thyroid Stimulating Hormone (TSH) 1.32 0.55-4.78 uIU/mL Test 04/09/25 15:49 Range/Units D-Dimer, Quantitative < 0.19 0.0-0.49 mg/L FEU Assessment Chest pain to rule out CAD--HEART score 2, ANUPAM score 2. NSTEMI, possible myocarditis. Sinus bradycardia. Hyperlipidemia. Asthma. Marijuana use. Plan/Recommendation I agree with your ongoing assessment and care of plan. Patient has been seen by Katlin Leyva NP on my behalf, her and I discussed the plan with the patient. Echocardiogram to assess LV function, wall motion abnormalities or structural disease. ACS protocol--aspirin, statins, Lovenox. We will schedule for Stress test on Saturday. Continue to monitor ECG, telemetry. Check lipid panel, TSH, A1c, UA, and UDS. Counseled on marijuana use. Avoid caffeine use. Additional plan as per the hospital course. Plan discussed with: Patient NYHA Physical activity limitations: NA Date of Service: Apr 10, 2025 Billing Provider: MALI SIEGEL MD Cardiology Common Codes: [id number] INP/OBS CARE (High) Cardiology Consultation Codes: [id number] CONSULT <45MIN MALI SIEGEL MD Apr 10, 2025 12:26
[2025-04-10] MEDS: ATORVASTATIN 20 MG TAB PO SCH (21:06)
[2025-04-11] VITALS (9 sets, daily range): BP systolic 114–131; BP diastolic 67–90; PULSE 50–72; RESP 17–20; TEMP 97.6–100.2; O2SAT 98–100
--- NOTE | 2025-04-11 15:35 | DVHPN2 ---
Subjective Patient denies having any chest pain. Reviewed: H&P, Labs, Medications Changes from previous H/P or p: No Changes General: Per HPI Objective Vitals Vital Signs Date Time Temp Pulse Resp B/P (MAP) Pulse Ox O2 Delivery O2 Flow Rate FiO2 04/11/25 12:51 97.8 63 20 118/73 (88) 100 97.8 04/11/25 08:00 Room Air* 0 21 Intake/Output Intake and Output 04/11/25 07:00 Intake Total 920 ml Balance 920 ml Intake Oral 920 ml # Voids 2 General Appearance: Alert, Oriented X3, Cooperative, mild distress HEENT: Atraumatic, PERRLA Lungs: Clear to auscultation, Normal air movement Cardiovascular: Normal S1, Normal S2 Abdomen: Normal bowel sounds, Soft, No tenderness Musculoskeletal: Normal sensory function, Normal motor function Extremities: No clubbing, No cyanosis, No edema, Normal pulses Neuro: Normal speech Skin: Dry, Intact Psych/Mental Status: Mental status NL, Mood NL Medications Current Medications Medications Dose Ordered Sig/Linda Route Start Time Stop Time Status Last Admin Dose Admin Nitroglycerin 0.4 mg Q5MINP PRN SL 04/09/25 23:00 Morphine Sulfate 2 mg Q30M PRN IV 04/09/25 23:00 Ipratropium [place] 0.5 mg Q4HPRN PRN NEB 04/10/25 04:30 Albuterol 2.5 mg Q4HPRN PRN NEB 04/10/25 04:30 Aspirin 81 mg DAILY PO 04/10/25 10:00 04/11/25 10:27 81 MG Atorvastatin Calcium 40 mg HS PO 04/10/25 22:00 04/10/25 21:06 40 MG Enoxaparin Sodium 80 mg Q12HR SC 04/10/25 10:09 04/10/25 11:06 80 MG Laboratory Results Laboratory Tests 04/10/25 04:07 Urinalysis Test 04/10/25 09:45 Urine Color Yellow (Yellow) Urine Clarity Turbid (Clear) H Urine pH 5.5 (5.0-9.0) Urine Specific [place] 1.034 (1.001-1.035) Urine Protein 1+ (Negative) H Urine Ketones Trace (Negative) Urine Blood 2+ /uL (Negative) H Urine Nitrite Negative (Negative) Urine Bilirubin Negative (Negative) Urine Urobilinogen 2 mg/dL (Negative) H Urine Leukocyte Esterase Negative /uL (Negative) Urine RBC 13 /hpf (0 - 4) Urine Microscopic WBC 7 /HPF (0-5) H Urine Squamous Epithelial Cells Mod /hpf (<5) Urine Bacteria Few /hpf (None Seen) H Urine Mucus Few (None Seen) Urine Glucose Normal mg/dL (Normal) Urine Test Negative (Negative) Labs and/or images reviewed: Labs reviewed by me, Image(s) reviewed by me Assessment/Plan Assessment/Plan Impression: -probable NSTEMI type 2 -rule out pericarditis -cannabinoid use -history of asthma Plan: -events: 24 hour telemetry reveals bradycardia with a heart rate in the 50s. Patient is asymptomatic. Reassess discharge planning after stress test tomorrow. -cardiology consultation: Recommendations reviewed. Plans for treadmill stress test. Patient placed on full-dose anticoagulation -bronchodilators p.r.n. -further course of care per findings of echocardiogram, telemetry monitoring Total time spent with patient discussing and formulating plan of care: 35 minutes. This medical document was created using an electronic medical record system with [employer] dictation system. Although this document has been carefully reviewed, there may still be some phonetic and typographical errors. These areas are purely typographical due to imperfections of the software programs, and do not reflect any compromise in the patient's medical care. Plan discussed with: Patient, Other (RN) Date of Service: Apr 11, 2025 Billing Provider: BOBBY RENEE NP Common Visit Codes: [id number] INP/OBS CARE(HIGH) BOBBY RENEE NP Apr 11, 2025 15:35
--- NOTE | 2025-04-11 23:32 | DVHPN2 ---
Progress Note - Dictate Date Seen: Apr 11, 2025 Medical Necessity Reason Pt with a Central, PICC or Fol: No Subjective Patient was seen and evaluated in follow up. No overnight events. Patient complains of generalized discomfort. Chest pain resolved. Telemetry reviewed. vital signs Vital Sign Date Time Temp Pulse Resp B/P (MAP) Pulse Ox O2 Delivery O2 Flow Rate FiO2 04/11/25 16:56 98.1 51 20 114/70 (85) 100 98.1 04/11/25 08:00 Room Air* 0 21 Total Intake and Output 04/10/25 04/10/25 04/11/25 15:00 23:00 07:00 Intake Total 120 ml 800 ml Balance 120 ml 800 ml medications Current Medications Medications Dose Ordered Sig/Linda Route Start Time Stop Time Status Last Admin Dose Admin Nitroglycerin 0.4 mg Q5MINP PRN SL 04/09/25 23:00 Morphine Sulfate 2 mg Q30M PRN IV 04/09/25 23:00 Ipratropium [place] 0.5 mg Q4HPRN PRN NEB 04/10/25 04:30 Albuterol 2.5 mg Q4HPRN PRN NEB 04/10/25 04:30 Aspirin 81 mg DAILY PO 04/10/25 10:00 04/11/25 10:27 81 MG Atorvastatin Calcium 40 mg HS PO 04/10/25 22:00 04/10/25 21:06 40 MG Enoxaparin Sodium 80 mg Q12HR SC 04/10/25 10:09 04/10/25 11:06 80 MG objective GENERAL: Alert and oriented x 3. No acute distress. EYES: PERRL, EOMI. Anicteric. HENT: Moist mucous membranes. LUNGS: Clear to auscultation bilaterally. CARDIOVASCULAR: Regular rate and rhythm. ABDOMEN: Soft, nontender and nondistended. EXTREMITIES: No edema. NEUROLOGIC: No focal neurological deficits. SKIN: Warm, dry. laboratory and microbiology Laboratory Tests 04/10/25 04:07 Test 04/10/25 04:07 Range/Units Serum Glucose 98 74-106 mg/dL Problem List Chest pain to rule out CAD--HEART score 2, ANUPAM score 2. NSTEMI, possible myocarditis. Sinus bradycardia. Hyperlipidemia. Asthma. Marijuana use. Assessment/Plan Continued all current supportive medical care. Aspirin, Lipitor. DVT prophylactics. Nebulized breathing treatments. Morphine for pain management. Additional plan as per the hospital course. Plan discussed with: Patient MALI SIEGEL MD Apr 11, 2025 18:46
[2025-04-12] VITALS (7 sets, daily range): BP systolic 107–114; BP diastolic 64–73; PULSE 46–66; RESP 18–20; TEMP 97.1–98.9; O2SAT 97–100
[2025-04-12] MEDS: REGADENOSON 0.4 MG/5 ML SYRG IV ONE ×2 (08:55→10:01)
--- NOTE | 2025-04-12 13:14 | DVHSR ---
APPROVED REPORT Exam: Nuclear Stress Test BMI: 0 Stress Test Details HR Max Heart Rate (APMHR): 187.051389 bpm Target HR (85% APMHR): 158.727878 bpm BP ECG Stress ECG Conclusion lvef 53% fixed anterior wall defect noted, could be breast artifact abnormal study consider CCTA NM EXAM: Myocardial Perfusion REST/STRESS Imaging Protocol: Rest Tc-99m/Stress Tc-99m 1 day Resting Data Rest SPECT myocardial perfusion imaging was performed in supine position 60 minutes following the int ravenous injection of 8.5 mCi of Tc-99m Sestamibi. Time of rest injection: 07:50 Date: 04/12/2025 Time of rest imagin:50 Date: 04/12/2025 Administration Route: IV Administration Site: Right Arm Pharmacologic Stress Pharmacologic stress test was performed by injecting Regadenoson 0.4 mg IV push followed by the intra venous injection of 30.7 mCi of Tc-99m Sestamibi. Time of stress injection: 10:00 Date: 04/12/2025 Time of stress imagin:00 Date: 04/12/2025 Administration Route: IV Administration Site: Right Hand Gated Stress SPECT was performed 60 minutes after stress injection. The images were gated to evaluate regional wall motion and calculate left ventricular ejection fracti on. Stress only was performed in the Supine position. Exercise Stress At peak stress, the patient was injected intravenously with 30.7mCi of Tc-99m Sestamibi. Time of stress injection: 10:00 Date: 04/12/2025 Time of stress imagin:00 Date: 04/12/2025 Nuclear Conclusion lvef 53% fixed anterior wall defect noted, could be breast artifact abnormal study consider CCTA
[2025-04-12] MEDS ORDERED: COLC1CAP PO (14:28)
--- NOTE | 2025-04-12 22:15 | DVHPN2 ---
Progress Note - Dictate Date Seen: Apr 12, 2025 Medical Necessity Reason Pt with a Central, PICC or Fol: No Subjective Patient was seen and evaluated in follow up. Echo shows LV EF of 55%. Patient denies any cardiac symptoms. Patient is cardiac stable for discharge. Telemetry reviewed. vital signs Vital Sign Date Time Temp Pulse Resp B/P (MAP) Pulse Ox O2 Delivery O2 Flow Rate FiO2 04/12/25 16:45 98.9 59 20 107/65 (79) 100 98.9 04/12/25 08:05 Room Air 04/12/25 08:05 0 21 Total Intake and Output 04/11/25 04/11/25 04/12/25 15:00 23:00 07:00 Intake Total 200 ml 300 ml 200 ml Balance 200 ml 300 ml 200 ml objective GENERAL: Alert and oriented x 3. No acute distress. EYES: PERRL, EOMI. Anicteric. HENT: Moist mucous membranes. LUNGS: Clear to auscultation bilaterally. CARDIOVASCULAR: Regular rate and rhythm. ABDOMEN: Soft, nontender and nondistended. EXTREMITIES: No edema. NEUROLOGIC: No focal neurological deficits. SKIN: Warm, dry. laboratory and microbiology Laboratory Tests 04/10/25 04:07 Test 04/10/25 04:07 Range/Units Serum Glucose 98 74-106 mg/dL Problem List Chest pain to rule out CAD--HEART score 2, ANUPAM score 2. NSTEMI, possible myocarditis. Sinus bradycardia. Hyperlipidemia. Asthma. Marijuana use. Assessment/Plan Continued all current supportive medical care. Aspirin, Lipitor. DVT prophylactics. Nebulized breathing treatments. Morphine for pain management. Additional plan as per the hospital course. Plan discussed with: Patient MALI SIEGEL MD Apr 12, 2025 22:15
[2025-04-14 08:07] LABS: Anti-Nuclear Antibody Direct Negative (Negative)
== END 2025-04-12 16:14 | disposition home or self-care (01) | DRG 282 ==
LOC: ER 14:31 → OVERFLOW 22:54 → TELE-WESTW 04-10 17:37
PROVIDERS: ADMIT Nurse Practitioner Acute Care; ATTEND Nurse Practitioner Acute Care
DX: I51.4 Myocarditis, unspecified (principal); I21.A1 Myocardial infarction type 2; J45.909 Unspecified asthma, uncomplicated; E78.5 Hyperlipidemia, unspecified; F12.90 Cannabis use, unspecified, uncomplicated; Z79.82 Long term (current) use of aspirin; Z82.49 Family history of ischemic heart disease and other diseases of the circulatory system
CPT/HCPCS: 36415; 71046; 78452; 80048; 80053; 80061; 80307; 81001; 81025; 83036; 83880; 84443; 84484; 85025; 85379; 85652; 86038; 86141; 86431; 93005; 93017; 93306; G0378

== ENCOUNTER 2025-05-15 10:46 | Inpatient (IN) | payer MEDICAID ==
[~2025-05-15] VITALS: Ht 172.7 cm; Wt 74.9 kg
[~2025-05-15 10:46] MED LIST changes: +ALBU108A5 PO; +ASPI-325 PO; +CETI-120 PO; +COLC1CAP PO; +LIDO1.8P TOP; +LORA-1121 PO; +TRAZ-227 PO
--- NOTE | 2025-05-15 11:25 | ED.PDOC ---
History of Present Illness HPI Comments 35 y/o F presents with c/c of chest pain and shortness of breath. Significant history for asthma, hyperlipidemia, sinus bradycardia, NSTEMI, and marijuana use. Patient reports on sudden, unprovoked, and atraumatic onset of nonradiating pain, this morning, which she reports having a history of having on-and-off, this year. She also states on difficulty breathing onset at when asleep. No endorsed recent ailments, sick contact, injuries, stressors, strenuous activities, or further acute symptoms. Denial of any nausea, vomiting, fever, chills, or further acute symptoms. Chief Complaint: Chest Pain Time Seen by MD: 10:55 Primary Care Provider: UNKNOWN Reviewed Notes: Nurses Notes, Medications, Allergies Allergies: Coded Allergies: NO KNOWN ALLERGIES (Unverified , 11/10/14) Home Meds Active Scripts Colchicine (Colchicine) 0.6 Mg Cap, 0.6 MG PO BID for 60 Days, #120 CAP Prov:BOBBY RENEE NP 04/12/25 Prednisone (Prednisone) 20 Mg Tab, 20 MG PO BID for 5 Days, #10 TAB 0 Refills Prov:ALEKSANDAR FIGUEROA 04/06/25 Albuterol Sulfate (VENTOLIN MDI) 90 Mcg Ih, 2 PUFF IN Q6HPRN, #1 INH 0 Refills Prov:ALEKSANDAR FIGUEROA 04/06/25 Information Source: Patient Mode of Arrival: Ambulatory Severity: Moderate Timing: Hours Duration: Since onset Prehospital treatment: None Past Medical History PAST MEDICAL HISTORY: Asthma, High Lipids, MD (NSTEMI, possible myocarditis, per previous hospital admission) Past Medical History (Other): Sinus bradycardia Surgical History: Denies all surgeries SUPPLIER QUALITY ENGINEER History: No Pertinent SUPPLIER QUALITY ENGINEER History Family History Family History: Reviewed,noncontributory to illness Social History Smoker: Non-Smoker Alcohol: Denies ETOH Use Drugs: Marijuana Lives In: Home All Other Systems: Reviewed and Negative (Comprehensive review of systems are negative unless stated in HPI) Physical Exam General Appearance: Moderate Distress HEENT: Normal ENT Inspection, Pharynx Normal, TMs Normal Neck: Full Range of Motion, Non-Tender, Normal, Normal Inspection Respiratory: Chest Non-Tender, Lungs Clear, No Accessory Muscle Use, No Respiratory Distress, Normal Breath Sounds Cardiovascular: Bradycardia, No Edema, No JVD, No Murmur, No Gallop, Normal Peripheral Pulses Breast Exam: Deferred Gastrointestinal: No Organomegaly, Non Tender, No Pulsatile Mass, Normal Bowel Sounds, Soft Genitalia: Deferred Pelvic: Deferred Rectal: Deferred Extremities: No calf tenderness, Normal capillary refill, Normal inspection, Normal range of motion, Non-tender, No pedal edema Musculoskeletal : Apperance: Normal Neurologic: Alert, apple thinner II-XII nml as Tested, No Motor Deficits, Normal Affect, Normal Mood, No Sensory Deficits Cerebellar Function: Normal Reflexes: Normal Skin: Dry, Normal Color, Warm Peripheral Pulses: 3+ Radial (R), 3+ Radial (L) Lymphatic: No Adenopathy Was a procedure done? Was a procedure done?: No EKG EKG #1: Pulse Rate (adult): 55 [place]: Normal Cardiac Rhythm: NSR Block: None Hypertrophy: None ST: Normal EKG #2: Pulse Rate (adult): 45 [place]: Normal Cardiac Rhythm: NSR Block: None Hypertrophy: None ST: Normal Differential Dx Considerations may include: MD, PE, ACS, URI, PNA, angina, anxiety, among others X-Ray, Labs, Meds, VS Vital Signs Date Time Temp Pulse Resp B/P (MAP) Pulse Ox O2 Delivery O2 Flow Rate FiO2 05/15/25 13:14 52 18 100 Room Air 05/15/25 13:14 52 18 109/62 (78) 100 05/15/25 11:58 45 05/15/25 11:55 45 05/15/25 11:25 55 05/15/25 10:58 98.4 61 16 111/70 99 98.4 05/15/25 10:50 55 Lab Test 05/15/25 13:44 05/15/25 12:30 05/15/25 11:45 05/15/25 10:55 Range/Units Troponin I High Sensitivity 75 *H 66 *H 76 *H </=34 ng/L Urine Color Yellow Yellow Urine Clarity Clear Clear Urine pH 6.0 5.0-9.0 Urine Specific [place] 1.026 1.001-1.035 Urine Protein Negative Negative Urine Ketones Negative Negative Urine Blood Negative Negative /uL Urine Nitrite Negative Negative Urine Bilirubin Negative Negative Urine Urobilinogen Normal Negative mg/dL Urine Leukocyte Esterase Negative Negative /uL Urine RBC 2 0 - 4 /hpf Urine Microscopic WBC 1 0-5 /HPF Urine Squamous Epithelial Cells Few <5 /hpf Urine Bacteria None seen None Seen /hpf Urine Mucus Few None Seen Urine Glucose Normal Normal mg/dL White Blood Count 5.6 4.4-10.8 10^3/uL Red Blood Count 4.19 4.0-5.20 10^6/uL Hemoglobin 12.6 12.2-16.2 g/dL Hematocrit 38.1 36.0-46.0 % Mean Corpuscular Volume 90.9 80.0-100.0 fL Mean Corpuscular Hemoglobin 30.0 28.0-32.0 pg Mean Corpuscular Hemoglobin Concent 32.9 32.0-36.0 g/dL Red Cell Distribution Width 12.9 11.8-14.3 % Platelet Count 251 140-450 10^3/uL Mean Platelet Volume 9.2 6.9-10.8 fL Neutrophils (%) (Auto) 50.1 37.0-80.0 % Lymphocytes (%) (Auto) 41.8 10.0-50.0 % Monocytes (%) (Auto) 6.0 0.0-12.0 % Eosinophils (%) (Auto) 1.5 0.0-7.0 % Basophils (%) (Auto) 0.6 0.0-2.0 % Neutrophils # (Auto) 2.8 1.6-8.6 10 ^3/uL Lymphocytes # (Auto) 2.3 0.4-5.4 10 ^3/uL Monocytes # (Auto) 0.3 0-1.3 10 ^3/uL Eosinophils # (Auto) 0.1 0-0.8 10 ^3/uL Basophils # (Auto) 0 0-0.2 10 ^3/uL Nucleated Red Blood Cells 0.0 % Sodium Level 142 136-145 mmol/L Potassium Level 4.1 3.5-5.1 mmol/L Chloride Level 110 H 98-107 mmol/L Carbon Dioxide Level 24 20-31 mmol/L Anion Gap 8 5-15 Blood Urea Nitrogen 9 9-23 mg/dL Creatinine 0.90 0.550-1.02 mg/dL Glomerular Filtration Rate Calc 87 >90 mL/min BUN/Creatinine Ratio 10.0 10.0-20.0 Serum Glucose 89 74-106 mg/dL Calcium Level 9.7 8.7-10.4 mg/dL Current Medications Medications (Trade) Dose Ordered Sig/Linda Route Start Time Stop Time Status Last Admin Aspirin 325 mg ONCE ONCE PO 05/15/25 11:00 05/15/25 11:01 DC 05/15/25 12:11 Heparin Sodium (Porcine) 3,000 units ONCE ONCE IV 05/15/25 12:15 05/15/25 12:16 DC 05/15/25 12:57 [place] [address] Ph: [phone] DIAGNOSTIC IMAGING Diagnostic Imaging Report : [id number] Signed PATIENT: ALVARO LANE LACCT: [id number] UNIT: [id number] : 1990 LOC: ER ROOM / BED: / AGE / SEX: 35 / F ADM STATUS: REG ER SERVICE 1056 ORDERING PHYSICIAN: MELLY FUENTES MD PROCEDURE(s): CXRP - CHEST PORTABLE REASON: sob ORDER NUMBER(s): [id number], ACCESSION NUMBER(s): [id number] CLINICAL HISTORY: sob TECHNIQUE: Single view of the chest was obtained. COMPARISON: XY CHEST TWO VIEWS ROUTINE on DOS: 04/09/25, XR CHEST 2 VIEWS on DOS: 04/07/25, XR CHEST 2 VIEWS on DOS: 11/28/23 FINDINGS: The heart size and pulmonary vasculature are normal. The lungs are clear. IMPRESSION: NO ACUTE CARDIOPULMONARY PROCESS. Patient alert. Complaining of chest pain. EKG reviewed does show bradycardia. Vitals stable. Answering questions. Reviewed her previous visit. Cardiac marker elevated. Was given aspirin. Was given heparin. Explained to the patient. Continue monitoring. Time of 1ST Reevaluation: 11:15 Reevaluation 1ST: Unchanged Patient Education/Counseling: Diagnosis, Treatment, Other (need for admission ) Family Education/Counseling: No Family Present SEPSIS Sepsis Screen Date sepsis recognized/suspect: May 15, 2025 Time Sepsis recognized/suspect: 1058 Recent Procedure: No On Antibiotic Therapy: No Respiratory Rate >20: No Heart Rate >90: No Temp<36 C (96.8 F) or >38.3 C: No SBP <90 or MAP <65 mmHG: No New Acute Mental Status Change: No Is the patient on CPAP, BIPAP,: No Physician Orders Electrocardigram (05/15/25 10:56) Electrocardigram (05/15/25 11:56) Electrocardigram (05/15/25 13:56) Chest Portable (05/15/25 10:56) Vital Signs Date Time Temp Pulse Resp B/P (MAP) Pulse Ox O2 Delivery O2 Flow Rate FiO2 05/15/25 13:14 52 18 100 Room Air 05/15/25 13:14 52 18 109/62 (78) 100 05/15/25 11:58 45 05/15/25 11:55 45 05/15/25 11:25 55 05/15/25 10:58 98.4 61 16 111/70 99 98.4 05/15/25 10:50 55 Laboratory Tests Test 05/15/25 10:55 White Blood Count 5.6 10^3/uL (4.4-10.8) Medications Medications Dose Ordered Sig/Linda Route Start Time Stop Time Status Last Admin Dose Admin Aspirin 325 mg ONCE ONCE PO 05/15/25 11:00 05/15/25 11:01 DC 05/15/25 12:11 Heparin Sodium (Porcine) 3,000 units ONCE ONCE IV 05/15/25 12:15 05/15/25 12:16 DC 05/15/25 12:57 Departure 1 Departure Time of Disposition: 13:15 Impression: Primary Impression: Chest pain of unknown etiology Additional Impression: Demand ischemia Disposition: ADMITTED INPATIENT Admit to: Med Surg Condition: Guarded Critical Care Note Critical Care Time?: Yes (90 min-critical care time only) Stability Stability form required: No Heart Score Heart Score: Heart Score Response (Comments) Value History Moderate Suspicious 1 EKG Normal 0 Age <45 0 Risk Factors 1 or 2 risk factors 1 Troponin 1-2 x's Normal limit 1 Total 3 I personally scribed for MELLY FUENTES MD ([email or web address]) on 05/15/25 at 11:25. Electronically submitted by Jermaine Espinoza ([email or web address]). I personally scribed for MELLY FUENTES MD ([email or web address]) on 05/15/25 at 11:58. Electronically submitted by Jermaine Espinoza ([email or web address]). I personally scribed for MELLY FUENTES MD ([email or web address]) on 05/15/25 at 14:19. Electronically submitted by Janny Hardy ([email or web address]). I personally scribed for MELLY FUENTES MD ([email or web address]) on 05/15/25 at 15:09. Electronically submitted by Jermaine Espinoza ([email or web address]). MELLY FUENTES MD May 15, 2025 11:25
--- NOTE | 2025-05-15 11:53 | DVH ---
CLINICAL HISTORY: sob TECHNIQUE: Single view of the chest was obtained. COMPARISON: XY CHEST TWO VIEWS ROUTINE on DOS: 04/09/25, XR CHEST 2 VIEWS on DOS: 04/07/25, XR CHEST 2 VIEWS on DOS: 11/28/23 FINDINGS: The heart size and pulmonary vasculature are normal. The lungs are clear. IMPRESSION: NO ACUTE CARDIOPULMONARY PROCESS.
[2025-05-15] MEDS: HEPARIN SODIUM (PORCINE) 5000 UNITS/ML 1ML VIAL IV ONE (12:57)
[2025-05-15 12:59] LABS: Urine Protein, UAD Negative (Negative)
[2025-05-15 13:02] LABS: Hematocrit 38.1 % (36.0-46.0); Hemoglobin 12.6 g/dL (12.2-16.2); Mean Corpuscular Hemoglobin 30.0 pg (28.0-32.0); Mean Corpuscular Volume 90.9 fL (80.0-100.0); Nucleated Red Blood Cells % 0.0 %
[2025-05-15 13:05] LABS: Potassium 4.1 mmol/L (3.5-5.1); Sodium 142 mmol/L (136-145)
[2025-05-15 13:06] LABS: Anion Gap 8 (5-15); Calcium 9.7 mg/dL (8.7-10.4); Carbon Dioxide 24 mmol/L (20-31)
[2025-05-15 13:11] LABS: BUN/Creatinine Ratio 10.0 (10.0-20.0); Blood Urea Nitrogen 9 mg/dL (9-23); Chloride 110 mmol/L (98-107); Glucose 89 mg/dL (74-106)
[2025-05-15] MEDS ORDERED: ALBUTEROL SULF 2.5 MG/0.5ML(0.5%) NEB SOLN NEB PRN (14:00)
[2025-05-15] MEDS ORDERED: NITROGLYCERIN 0.4 MG SL TAB SL PRN (14:00)
[2025-05-15] MEDS ORDERED: ONDANSETRON HCL 4 MG/2 ML VIAL IV PRN (14:00)
[2025-05-15] MEDS ORDERED: MORPHINE SULFATE INJ 2 MG/ml SYRG IV PRN (14:00)
[2025-05-15 14:14] VITALS: BP 109/62; PULSE 54; RESP 18; TEMP 98.4; O2SAT 100
--- NOTE | 2025-05-15 15:56 | DVHINCON2 ---
Date Seen: May 15, 2025 Referring Physician EMERITA Flor Reason for Consultation Chest pain History of Present Illness This is a 35-year-old female patient who presents to the emergency room with chest pain for four days. The patient reports that she has been experiencing worsening chest pain over the last four days. She describes it as unprovoked, intermittent, stabbing in nature, left-sided with radiation to her left shoulder. Pain is reproducible upon palpation. Associated symptoms include shortness of breath. Initial twelve lead electrocardiogram reveals sinus bradycardia with nonspecific ST segment changes to septal leads. Initial troponin level of 76ng/L with flat trend thereafter. Significant past medical history includes pericarditis, asthma, and marijuana use. The patient has not followed up with a piping supervisor in the outpatient setting. Past Medical History Past medical history reviewed. No other significant than mentioned above. Past Surgical History Denies any previous surgeries Family History: Hypertension G8 MOTHER Family History Family history reviewed. Social History Patient admits to occasional marijuana use Denies any tobacco use Denies any alcohol use Allergies: Coded Allergies: NO KNOWN ALLERGIES (Unverified , 11/10/14) Home Meds Active Scripts Colchicine (Colchicine) 0.6 Mg Cap, 0.6 MG PO BID for 60 Days, #120 CAP Prov:BOBBY RENEE NP 04/12/25 Prednisone (Prednisone) 20 Mg Tab, 20 MG PO BID for 5 Days, #10 TAB 0 Refills Prov:ALEKSANDAR FIGUEROA 04/06/25 Albuterol Sulfate (VENTOLIN MDI) 90 Mcg Ih, 2 PUFF IN Q6HPRN, #1 INH 0 Refills Prov:ALEKSANDAR FIGUEROA 04/06/25 Home Meds Home medications reviewed. Current Medications Current Medications Medications (Trade) Dose Ordered Sig/Linda Route PRN Reason Start Time Stop Time Status Last Admin Albuterol (Ventolin Med[place]) 2.5 mg Q6HPRN PRN NEB SHORTNESS OF BREATH 05/15/25 14:00 Aspirin 81 mg DAILY PO 05/16/25 10:00 Ondansetron HCl (Zofran) 4 mg Q4HP PRN IV NAUSEA / VOMITING 05/15/25 14:00 Nitroglycerin (Ntrostat Sublingual) 0.4 mg Q5MINP PRN SL FOR CHEST PAIN 05/15/25 14:00 Morphine Sulfate 2 mg Q30M PRN IV FOR CHEST PAIN 05/15/25 14:00 Review of Systems Constitutional: No symptom reported Ears, Nose, & Throat: No symptom reported Eyes: No symptom reported Neurological: No symptoms reported Pulmonary/Respiratory: Shortness of breath Cardiovascular: Chest pain Gastrointestinal: No symptom reported Genitourinary: No symptom reported Musculoskeletal: No symptom reported Skin: No symptom reported Psychiatric: No symptom reported Endocrine: No symptom reported Hematologic/Lymphatic: No symptom reported Vital Signs Vital Signs Date Time Temp Pulse Resp B/P (MAP) Pulse Ox O2 Delivery O2 Flow Rate FiO2 05/15/25 14:14 98.4 54 18 109/62 100 0.0 21 98.4 05/15/25 13:14 Room Air Physical Exam General Appearance: Cooperative. Well-developed. Well-nourished. No acute distress. Pulmonary/Respiratory: Clear, bilateral breaths sounds. Cardiovascular/Chest: Regular rate and rhythm. Peripheral Pulses: 2+ Radial (R). 2+ Radial (L). 2+ Pedal (R). 2+ Pedal (L) Abdominal Exam: Normal bowel sounds. Ankle Exam: Negative ankle edema Lower extremities: Negative lower extremity edema Neuro/Mental Status: A/OX4, coherent. Thoughts/Psych: Normal thought pattern. Appropriate mood and affect. Good judgment and insight. Appearance: No acute distress. Skin Exam: Normal inspection. Normal color. Warm and dry. Labs/Diagnostic Data Labs Test 05/15/25 13:44 05/15/25 12:30 05/15/25 10:55 Range/Units Troponin I High Sensitivity 75 *H </=34 ng/L Urine Color Yellow Yellow Urine Clarity Clear Clear Urine pH 6.0 5.0-9.0 Urine Specific [place] 1.026 1.001-1.035 Urine Protein Negative Negative Urine Ketones Negative Negative Urine Blood Negative Negative /uL Urine Nitrite Negative Negative Urine Bilirubin Negative Negative Urine Urobilinogen Normal Negative mg/dL Urine Leukocyte Esterase Negative Negative /uL Urine RBC 2 0 - 4 /hpf Urine Microscopic WBC 1 0-5 /HPF Urine Squamous Epithelial Cells Few <5 /hpf Urine Bacteria None seen None Seen /hpf Urine Mucus Few None Seen Urine Glucose Normal Normal mg/dL White Blood Count 5.6 4.4-10.8 10^3/uL Red Blood Count 4.19 4.0-5.20 10^6/uL Hemoglobin 12.6 12.2-16.2 g/dL Hematocrit 38.1 36.0-46.0 % Mean Corpuscular Volume 90.9 80.0-100.0 fL Mean Corpuscular Hemoglobin 30.0 28.0-32.0 pg Mean Corpuscular Hemoglobin Concent 32.9 32.0-36.0 g/dL Red Cell Distribution Width 12.9 11.8-14.3 % Platelet Count 251 140-450 10^3/uL Mean Platelet Volume 9.2 6.9-10.8 fL Neutrophils (%) (Auto) 50.1 37.0-80.0 % Lymphocytes (%) (Auto) 41.8 10.0-50.0 % Monocytes (%) (Auto) 6.0 0.0-12.0 % Eosinophils (%) (Auto) 1.5 0.0-7.0 % Basophils (%) (Auto) 0.6 0.0-2.0 % Neutrophils # (Auto) 2.8 1.6-8.6 10 ^3/uL Lymphocytes # (Auto) 2.3 0.4-5.4 10 ^3/uL Monocytes # (Auto) 0.3 0-1.3 10 ^3/uL Eosinophils # (Auto) 0.1 0-0.8 10 ^3/uL Basophils # (Auto) 0 0-0.2 10 ^3/uL Nucleated Red Blood Cells 0.0 % Sodium Level 142 136-145 mmol/L Potassium Level 4.1 3.5-5.1 mmol/L Chloride Level 110 H 98-107 mmol/L Carbon Dioxide Level 24 20-31 mmol/L Anion Gap 8 5-15 Blood Urea Nitrogen 9 9-23 mg/dL Creatinine 0.90 0.550-1.02 mg/dL Glomerular Filtration Rate Calc 87 >90 mL/min BUN/Creatinine Ratio 10.0 10.0-20.0 Serum Glucose 89 74-106 mg/dL Calcium Level 9.7 8.7-10.4 mg/dL Assessment NSTEMI, rule out coronary artery disease Hyperlipidemia Asthma Marijuana use Plan/Recommendation We will continue with the following plan/recommendations (Dr. West): Case discussed with . Previous transthoracic echocardiogram from 04/10/2025 reveals EF of 55% with severe RV strain pattern. The patient underwent a nuclear stress test on 04/12/2025 which revealed a fixed anterior wall defect that was noted, which could possibly be breast artifact. A CCTA was recommended at that time. We will tentatively schedule the patient to undergo a CCTA on 05/17/2025. In the meantime, continue with single antiplatelet therapy and lipid-lowering agent. Continue with close cardiac surveillance and notify cardiology team immediately for any ECG changes. Thank you for allowing us to care for this patient. Please call with any questions or concerns. Critical care time spent: 44 minutes This medical document was created using an electronic medical record system with voice recognition software and computerized dictation system. Although this document has been carefully reviewed, there might still be some phonetic and typographical errors. Occasional wrong-word or ``sound-alike substitutions may have occurred due to the inherent limitations of voice recognition software. These areas are purely typographical due to imperfections of the software programs and do not reflect any compromise in the patient's medical care. Please read the chart carefully and recognize, using context, where these substitutions have occurred. Plan discussed with: Patient NYHA Physical activity limitations: NA Date of Service: May 15, 2025 Billing Provider: DONALD WILKINSON Cardiology Common Codes: 27765-EBNQMMW INP/OBS CARE (High) Cardiology Consultation Codes: 08624-[id number] CONSULT <45MIN DONALD WILKINSON May 15, 2025 15:56
[2025-05-15 16:16] LABS: Magnesium 2.0 mg/dL (1.6-2.6); Triglycerides 65 mg/dL (< 150)
[2025-05-15 16:17] LABS: HDL Cholesterol 59 mg/dL (40-59)
[2025-05-15 16:18] LABS: Cholesterol 176 mg/dL (< 200)
[2025-05-15 16:30] LABS: Cannabinoid Screen, Urine Pos (NEGATIVE)
[2025-05-15 16:32] LABS: Amphetamine Screen, Urine Neg (NEGATIVE); Barbiturate Scree,Urine Neg (NEGATIVE); Benzodiazephine Screen, Urine Neg (NEGATIVE); Cocaine Screen, Urine Neg (NEGATIVE); Opiate Scree,Urine Neg (NEGATIVE); Phencyclidine Screen, Urine Neg (NEGATIVE)
--- NOTE | 2025-05-15 16:50 | DVHHP2 ---
History of Present Illness Reason for Visit: Chest pain History of Present Illness 35-year-old female presents for evaluation of chest pain. Patient endorses a four day history of intermittent left-sided sharp chest pain that radiates to her left shoulder. Also reports shortness for breath. No nausea or vomiting. No other acute complaints reported. Past Medical History Asthma, dyslipidemia,? VT, bradycardia Past Surgical History Denies Family History Noncontributory Smoke: No ALCOHOL: none Drugs: Marijuana Review of Systems Review of Systems Review of systems are currently negative otherwise addressed in HPI. Allergies: Coded Allergies: NO KNOWN ALLERGIES (Unverified , 11/10/14) Medications Current Medications Medications Dose Ordered Sig/Linda Route Start Time Stop Time Status Last Admin Dose Admin Albuterol 2.5 mg Q6HPRN PRN NEB 05/15/25 14:00 Aspirin 81 mg DAILY PO 05/16/25 10:00 Ondansetron HCl 4 mg Q4HP PRN IV 05/15/25 14:00 Nitroglycerin 0.4 mg Q5MINP PRN SL 05/15/25 14:00 Morphine Sulfate 2 mg Q30M PRN IV 05/15/25 14:00 Exam Vital Signs Vital Signs Date Time Temp Pulse Resp B/P (MAP) Pulse Ox O2 Delivery O2 Flow Rate FiO2 05/15/25 14:14 98.4 54 18 109/62 100 0.0 21 98.4 05/15/25 13:14 Room Air Exam Gen: 35-year-old female in mild distress. Skin: Warm, dry, normal color and texture, no rash. HEENT: Normocephalic atraumatic, mucous membranes moist and pink. Neck: Cervical and supraclavicular nodes normal without enlargement, trachea is midline, thyroid gland is normal without masses. Pulmonary: Clear to auscultation and percussion bilaterally. Cardiac: Sinus bradycardia Abdomen: Soft, nontender, nondistended, bowel sounds present all 4 quadrants, no guarding, no rigidity, no organomegaly. Extremities: No cyanosis, clubbing, no edema Neuro: Cranial nerves II through XII grossly intact, normal affect and speech, no focal motor deficits. Labs/Xrays ORDERING PHYSICIAN: MELLY FUENTES MD PROCEDURE(s): CXRP - CHEST PORTABLE REASON: sob ORDER NUMBER(s): [id number], ACCESSION NUMBER(s): [id number] CLINICAL HISTORY: sob TECHNIQUE: Single view of the chest was obtained. COMPARISON: XY CHEST TWO VIEWS ROUTINE on DOS: 04/09/25, XR CHEST 2 VIEWS on DOS: 04/07/25, XR CHEST 2 VIEWS on DOS: 11/28/23 FINDINGS: The heart size and pulmonary vasculature are normal. The lungs are clear. IMPRESSION: NO ACUTE CARDIOPULMONARY PROCESS. Labs Test 05/15/25 13:44 05/15/25 12:30 05/15/25 11:45 05/15/25 10:55 Range/Units Troponin I High Sensitivity 75 *H </=34 ng/L Urine Color Yellow Yellow Urine Clarity Clear Clear Urine pH 6.0 5.0-9.0 Urine Specific [place] 1.026 1.001-1.035 Urine Protein Negative Negative Urine Ketones Negative Negative Urine Blood Negative Negative /uL Urine Nitrite Negative Negative Urine Bilirubin Negative Negative Urine Urobilinogen Normal Negative mg/dL Urine Leukocyte Esterase Negative Negative /uL Urine RBC 2 0 - 4 /hpf Urine Microscopic WBC 1 0-5 /HPF Urine Squamous Epithelial Cells Few <5 /hpf Urine Bacteria None seen None Seen /hpf Urine Mucus Few None Seen Urine Glucose Normal Normal mg/dL Urine Opiates Screen Neg NEGATIVE Urine Fentanyl Screen Neg NEGATIVE Urine Barbiturates Screen Neg NEGATIVE Urine Phencyclidine Screen Neg NEGATIVE Urine Amphetamines Screen Neg NEGATIVE Urine Benzodiazepines Screen Neg NEGATIVE Urine Cocaine Screen Neg NEGATIVE Urine Cannabinoids Screen Pos NEGATIVE Thyroid Stimulating Hormone (TSH) 0.73 0.55-4.78 uIU/mL White Blood Count 5.6 4.4-10.8 10^3/uL Red Blood Count 4.19 4.0-5.20 10^6/uL Hemoglobin 12.6 12.2-16.2 g/dL Hematocrit 38.1 36.0-46.0 % Mean Corpuscular Volume 90.9 80.0-100.0 fL Mean Corpuscular Hemoglobin 30.0 28.0-32.0 pg Mean Corpuscular Hemoglobin Concent 32.9 32.0-36.0 g/dL Red Cell Distribution Width 12.9 11.8-14.3 % Platelet Count 251 140-450 10^3/uL Mean Platelet Volume 9.2 6.9-10.8 fL Neutrophils (%) (Auto) 50.1 37.0-80.0 % Lymphocytes (%) (Auto) 41.8 10.0-50.0 % Monocytes (%) (Auto) 6.0 0.0-12.0 % Eosinophils (%) (Auto) 1.5 0.0-7.0 % Basophils (%) (Auto) 0.6 0.0-2.0 % Neutrophils # (Auto) 2.8 1.6-8.6 10 ^3/uL Lymphocytes # (Auto) 2.3 0.4-5.4 10 ^3/uL Monocytes # (Auto) 0.3 0-1.3 10 ^3/uL Eosinophils # (Auto) 0.1 0-0.8 10 ^3/uL Basophils # (Auto) 0 0-0.2 10 ^3/uL Nucleated Red Blood Cells 0.0 % Erythrocyte Sedimentation Rate 7 0-20 mm/hr Sodium Level 142 136-145 mmol/L Potassium Level 4.1 3.5-5.1 mmol/L Chloride Level 110 H 98-107 mmol/L Carbon Dioxide Level 24 20-31 mmol/L Anion Gap 8 5-15 Blood Urea Nitrogen 9 9-23 mg/dL Creatinine 0.90 0.550-1.02 mg/dL Glomerular Filtration Rate Calc 87 >90 mL/min BUN/Creatinine Ratio 10.0 10.0-20.0 Serum Glucose 89 74-106 mg/dL Hemoglobin A1c 4.7 <5.7 % A1C Calcium Level 9.7 8.7-10.4 mg/dL Magnesium Level 2.0 1.6-2.6 mg/dL C-Reactive Protein High Sensitivity < 0.02 <1.0 mg/dL Triglycerides Level 65 < 150 mg/dL Cholesterol Level 176 < 200 mg/dL LDL Cholesterol 106 H < 100 mg/dL HDL Cholesterol 59 40-59 mg/dL SEPSIS Sepsis Screen Date sepsis recognized/suspect: May 15, 2025 Time Sepsis recognized/suspect: 1058 Recent Procedure: No On Antibiotic Therapy: No Respiratory Rate >20: No Heart Rate >90: No Temp<36 C (96.8 F) or >38.3 C: No SBP <90 or MAP <65 mmHG: No New Acute Mental Status Change: No Is the patient on CPAP, BIPAP,: No Physician Orders Electrocardigram (05/15/25 10:56) Electrocardigram (05/15/25 11:56) Electrocardigram (05/15/25 13:56) Chest Portable (05/15/25 10:56) Albuterol Medneb (Ventolin Medneb) (05/15/25 14:00) Aspirin Tablet (05/16/25 10:00) Basic Metabolic Panel (05/16/25 04:00) Admit (05/15/25 13:56) Ondansetron Hcl (Zofran) (05/15/25 14:00) Cardiac Diet-2gna,Lofat,Lochol (05/15/25 Dinner) Condition: Fair (05/15/25 13:56) Bedrest With Bathroom Privileg (05/15/25 13:56) Nitroglycerin Sublingual (Ntrostat Subli (05/15/25 14:00) Morphine Sulfate Injection (05/15/25 14:00) Stat Ekg For Chest Pain (05/15/25 13:56) Notify Md Of Changes From Base (05/15/25 13:56) Extractor Loader And Unloader For 24 Hours (05/15/25 13:56) Emergency Dysrhythmia Protocol (05/15/25 13:56) Rhythm Strips Once Every Shift (05/15/25 13:56) Oxygen By Nasal Cannula (05/15/25 13:56) * Cardiology Consult (05/15/25 13:56) Vital Signs Date Time Temp Pulse Resp B/P (MAP) Pulse Ox O2 Delivery O2 Flow Rate FiO2 05/15/25 14:14 98.4 54 18 109/62 100 0.0 21 98.4 05/15/25 13:14 52 18 100 Room Air 05/15/25 13:14 52 18 109/62 (78) 100 05/15/25 11:58 45 05/15/25 11:55 45 05/15/25 11:25 55 05/15/25 10:58 98.4 61 16 111/70 99 98.4 05/15/25 10:50 55 Laboratory Tests Test 05/15/25 10:55 White Blood Count 5.6 10^3/uL (4.4-10.8) Medications Medications Dose Ordered Sig/Linda Route Start Time Stop Time Status Last Admin Dose Admin Aspirin 325 mg ONCE ONCE PO 10/25/25 11:00 05/15/25 11:01 DC 05/15/25 12:11 325 MG Heparin Sodium (Porcine) 3,000 units ONCE ONCE IV 05/15/25 12:15 05/15/25 12:16 DC 05/15/25 12:57 3,000 UNITS Assessment/Plan Assessment/Plan Assessment Unstable angina Sinus bradycardia Elevated troponin, downtrending Plan Admit the patient to telemetry to the hospitalist Cardiology consultation ACS protocol Continue treatment per orders. Plan discussed with: Patient My Orders Orders - LOU OQUENDO Procedure Category Date Status Time Albuterol Medneb PHA 05/15/25 In Process (Ventolin Medneb) 14:00 Aspirin Tablet PHA 05/16/25 In Process 10:00 Basic Metabolic Panel LAB 05/16/25 Verified 04:00 Admit ADMIT 05/15/25 Transmitted 13:56 Ondansetron Hcl PHA 05/15/25 In Process (Zofran) 14:00 Cardiac DIET 05/15/25 Transmitted Diet-2gna,Lofat,Lochol Dinner Condition: Fair DEEPAK 05/15/25 In Process 13:56 Bedrest With Bathroom DEEPAK 05/15/25 In Process Privileg 13:56 Nitroglycerin PHA 05/15/25 In Process Sublingual (Ntrostat 14:00 Morphine Sulfate PHA 05/15/25 In Process Injection 14:00 Stat Ekg For Chest DEEPAK 05/15/25 In Process Pain 13:56 Notify Md Of Changes DEEPAK 05/15/25 In Process From Base 13:56 Extractor Loader And Unloader For DEEPAK 05/15/25 In Process 24 Hours 13:56 Emergency Dysrhythmia DEEPAK 05/15/25 In Process Protocol 13:56 Rhythm Strips Once DEEPAK 05/15/25 In Process Every Shift 13:56 Oxygen By Nasal RT 05/15/25 Transmitted Cannula 13:56 * Cardiology Consult CONS 05/15/25 Transmitted 13:56 Date of Service: May 15, 2025 Billing Provider: LOU OQUENDO Common Visit Codes: [id number] INP/OBS CARE (HIGH) LOU OQUENDO May 15, 2025 16:50
[2025-05-15 17:00] VITALS: BP 103/63; PULSE 62; RESP 18; TEMP 98.3; O2SAT 100
[2025-05-15 18:00] VITALS: BP 103/63; PULSE 62; RESP 18; TEMP 98.3; O2SAT 100
[2025-05-15 20:00] VITALS: PULSE 40
[2025-05-15 21:00] VITALS: BP 114/74; PULSE 50; RESP 16; TEMP 98; O2SAT 98
[2025-05-15] MEDS: ATORVASTATIN 20 MG TAB PO SCH (21:57)
[2025-05-15 22:20] VITALS: O2SAT 98
[2025-05-16] VITALS (8 sets, daily range): BP systolic 97–128; BP diastolic 54–83; PULSE 45–58; RESP 16–21; TEMP 97.9–98.4; O2SAT 97–100
[2025-05-16 06:33] LABS: Potassium 3.9 mmol/L (3.5-5.1); Sodium 140 mmol/L (136-145)
[2025-05-16 06:34] LABS: Anion Gap 8 (5-15); Carbon Dioxide 22 mmol/L (20-31)
[2025-05-16 06:35] LABS: Calcium 9.1 mg/dL (8.7-10.4)
[2025-05-16 06:40] LABS: BUN/Creatinine Ratio 8.2 (10.0-20.0); Glucose 82 mg/dL (74-106)
[2025-05-16 06:46] LABS: Blood Urea Nitrogen 7 mg/dL (9-23); Chloride 110 mmol/L (98-107)
--- NOTE | 2025-05-16 10:07 | DVHPN2 ---
Consult Progress Note Subjective Other Systems: The patient is in sinus bradycardia on residential monitor at time of assessment. Denies any chest pain at time of assessment. Overnight residential monitor reviewed and is significant for intermittent second degree type 1 AV block Objective vital signs Vital Sign Date Time Temp Pulse Resp B/P (MAP) Pulse Ox O2 Delivery O2 Flow Rate FiO2 05/16/25 07:00 98.3 52 20 119/83 (95) 99 98.3 05/15/25 22:20 Room Air 0.0 05/15/25 22:20 21 Total Intake and Output 05/15/25 05/15/25 05/16/25 15:00 23:00 07:00 Intake Total 640 ml Balance 640 ml medications Current Medications Medications Dose Ordered Sig/Linda Route Start Time Stop Time Status Last Admin Dose Admin Albuterol 2.5 mg Q6HPRN PRN NEB 05/15/25 14:00 Cancel Aspirin 81 mg DAILY PO 05/16/25 10:00 05/16/25 09:46 81 MG Ondansetron HCl 4 mg Q4HP PRN IV 05/15/25 14:00 Nitroglycerin 0.4 mg Q5MINP PRN SL 05/15/25 14:00 Morphine Sulfate 2 mg Q30M PRN IV 05/15/25 14:00 Atorvastatin Calcium 20 mg HS PO 05/15/25 22:00 05/15/25 21:57 20 MG Examination: GENERAL:Normal, LUNGS:Normal, CVS:Normal, NEURO:Normal laboratory and microbiology Laboratory Tests 05/16/25 04:35 05/15/25 10:55 Test 05/16/25 04:35 Range/Units Serum Glucose 82 74-106 mg/dL Problem List/Assessment/Plan Problem List/Assessment/Plan NSTEMI, rule out coronary artery disease Intermittent second degree type I atrioventricular block Hyperlipidemia Asthma Marijuana use Plan/Recommendation (Dr. West): Case discussed with . A transthoracic echocardiogram done on this admission reveals an EF of 60%. The patient underwent a nuclear stress test on 04/12/2025 which revealed a fixed anterior wall defect that was noted, which could possibly be breast artifact. A CCTA was recommended at that time. We will tentatively schedule the patient to undergo a CCTA on 05/17/2025. In the meantime, continue with single antiplatelet therapy and lipid-lowering agent. Patient noted to go into intermittent second-degree type 1 (Mobitz 1) atrioventricular block overnight. Avoid AV adebayo blocking agents. Continue with close cardiac surveillance and notify cardiology team immediately for any ECG changes. Thank you for allowing us to care for this patient. Please call with any questions or concerns. This medical document was created using an electronic medical record system with voice recognition software and computerized dictation system. Although this document has been carefully reviewed, there might still be some phonetic and typographical errors. Occasional wrong-word or ``sound-alike substitutions may have occurred due to the inherent limitations of voice recognition software. These areas are purely typographical due to imperfections of the software programs and do not reflect any compromise in the patient's medical care. Please read the chart carefully and recognize, using context, where these substitutions have occurred. Plan discussed with: Patient Date of Service: May 16, 2025 Billing Provider: DONALD WILKINSON Common Visit Codes: [id number] INP/OBS CARE(HIGH) DONALD WILKINSON May 16, 2025 10:07
--- NOTE | 2025-05-16 13:03 | DVHPN2 ---
Changes from previous H/P or p: No Changes Objective Vitals Vital Signs Date Time Temp Pulse Resp B/P (MAP) Pulse Ox O2 Delivery O2 Flow Rate FiO2 05/16/25 12:42 98.4 47 17 128/78 (95) 100 98.4 05/15/25 22:20 Room Air 0.0 05/15/25 22:20 21 Intake/Output Intake and Output 05/16/25 07:00 Intake Total 640 ml Balance 640 ml Intake Oral 640 ml # Voids 1 Medications Current Medications Medications Dose Ordered Sig/Linda Route Start Time Stop Time Status Last Admin Dose Admin Albuterol 2.5 mg Q6HPRN PRN NEB 05/15/25 14:00 Cancel Aspirin 81 mg DAILY PO 05/16/25 10:00 05/16/25 09:46 81 MG Ondansetron HCl 4 mg Q4HP PRN IV 05/15/25 14:00 Nitroglycerin 0.4 mg Q5MINP PRN SL 05/15/25 14:00 Morphine Sulfate 2 mg Q30M PRN IV 05/15/25 14:00 Atorvastatin Calcium 20 mg HS PO 05/15/25 22:00 05/15/25 21:57 20 MG Laboratory Results Laboratory Tests 05/15/25 10:55 05/16/25 04:35 Chemistry Test 05/16/25 04:35 Calcium Level 9.1 mg/dL (8.7-10.4) Urinalysis Test 05/15/25 12:30 Urine Color Yellow (Yellow) Urine Clarity Clear (Clear) Urine pH 6.0 (5.0-9.0) Urine Specific [place] 1.026 (1.001-1.035) Urine Protein Negative (Negative) Urine Ketones Negative (Negative) Urine Blood Negative /uL (Negative) Urine Nitrite Negative (Negative) Urine Bilirubin Negative (Negative) Urine Urobilinogen Normal mg/dL (Negative) Urine Leukocyte Esterase Negative /uL (Negative) Urine RBC 2 /hpf (0 - 4) Urine Microscopic WBC 1 /HPF (0-5) Urine Squamous Epithelial Cells Few /hpf (<5) Urine Bacteria None seen /hpf (None Seen) Urine Mucus Few (None Seen) Urine Glucose Normal mg/dL (Normal) Labs and/or images reviewed: Labs reviewed by me, Image(s) reviewed by me Assessment/Plan Assessment/Plan NSTEMI, rule out coronary artery disease troponin 75, consult by Dr. Lou scott, Intermittent second degree type I atrioventricular block: [place] blocking Hyperlipidemia Asthma Marijuana use CORONARY COMPUTED TOMOGRAPHIC ANGIOGRAM SCHEDULED FOR 05/17/2025 Plan discussed with: Patient Date of Service: May 16, 2025 Billing Provider: LASHAUN PATEL MD Common Visit Codes: [id number] INP/OBS CARE(HIGH) LASHAUN PATEL MD May 16, 2025 13:03
--- NOTE | 2025-05-16 13:38 | DVHSR ---
APPROVED REPORT EXAM: LIMITED Two-dimensional and M-mode echocardiogram. Blood Pressure: 119/68 mmHg INDICATION Eval cardiac function RISK FACTORS Height: 68, Weight: 165 DIMENSIONS LVDd5.8 (3.8-5.7cm)LA (2D) (1.9-4.0cm)Aortic Root (2.0-3.7cm) LVDs4.1 (2.5-4.0cm)LA (MM) (1.9-4.0cm)Aortic Cusp Exc (1.5-2.0cm) EF (%) 55.0 (55-70%)Rt. Atrium (1.9-4.0cm)Asc. Aorta cm IVSd1.0 (0.7-1.1cm)RV (D) (1.8-2.4cm) PWd0.8 (0.7-1.1cm) Mitral Valve MitralMitral Stenosis E/A ratio0.02D MVAcm2 Other Information Technically limited study due to eval for EF. Conclusion lvef 60% normal rv function normal atria limtid study
[2025-05-17] VITALS (16 sets, daily range): BP systolic 104–133; BP diastolic 57–81; PULSE 44–97; RESP 16–18; TEMP 97.6–98.4; O2SAT 96–100
[2025-05-17 05:58] LABS: Hematocrit 36.8 % (36.0-46.0); Hemoglobin 12.3 g/dL (12.2-16.2); Mean Corpuscular Hemoglobin 30.4 pg (28.0-32.0); Mean Corpuscular Volume 90.8 fL (80.0-100.0); Nucleated Red Blood Cells % 0.1 %
[2025-05-17 06:15] LABS: Potassium 4.1 mmol/L (3.5-5.1); Sodium 140 mmol/L (136-145)
[2025-05-17 06:16] LABS: Carbon Dioxide 24 mmol/L (20-31)
[2025-05-17 06:17] LABS: Calcium 9.1 mg/dL (8.7-10.4)
[2025-05-17 06:22] LABS: BUN/Creatinine Ratio 10.0 (10.0-20.0); Blood Urea Nitrogen 9 mg/dL (9-23); Glucose 92 mg/dL (74-106)
[2025-05-17 06:24] LABS: Anion Gap 8 (5-15); Chloride 108 mmol/L (98-107)
--- NOTE | 2025-05-17 09:47 | DVHPN2 ---
Reviewed: Care Plan, H&P, Labs, Medications, Previous Orders, Radiology Changes from previous H/P or p: No Changes Objective Vitals Vital Signs Date Time Temp Pulse Resp B/P (MAP) Pulse Ox O2 Delivery O2 Flow Rate FiO2 05/17/25 09:00 98.4 51 18 115/63 (80) 100 98.4 05/16/25 20:15 Room Air* 0 21 Intake/Output Intake and Output 05/17/25 07:00 Intake Total 1300 ml Balance 1300 ml Intake Oral 1300 ml # Voids 5 Medications Current Medications Medications Dose Ordered Sig/Linda Route Start Time Stop Time Status Last Admin Dose Admin Albuterol 2.5 mg Q6HPRN PRN NEB 05/15/25 14:00 Cancel Aspirin 81 mg DAILY PO 05/16/25 10:00 05/16/25 09:46 81 MG Ondansetron HCl 4 mg Q4HP PRN IV 05/15/25 14:00 Nitroglycerin 0.4 mg Q5MINP PRN SL 05/15/25 14:00 Morphine Sulfate 2 mg Q30M PRN IV 05/15/25 14:00 Atorvastatin Calcium 20 mg HS PO 05/15/25 22:00 05/16/25 23:03 20 MG Laboratory Results Laboratory Tests 05/17/25 04:33 Chemistry Test 05/17/25 04:33 Calcium Level 9.1 mg/dL (8.7-10.4) Urinalysis Test 05/15/25 12:30 Urine Color Yellow (Yellow) Urine Clarity Clear (Clear) Urine pH 6.0 (5.0-9.0) Urine Specific [place] 1.026 (1.001-1.035) Urine Protein Negative (Negative) Urine Ketones Negative (Negative) Urine Blood Negative /uL (Negative) Urine Nitrite Negative (Negative) Urine Bilirubin Negative (Negative) Urine Urobilinogen Normal mg/dL (Negative) Urine Leukocyte Esterase Negative /uL (Negative) Urine RBC 2 /hpf (0 - 4) Urine Microscopic WBC 1 /HPF (0-5) Urine Squamous Epithelial Cells Few /hpf (<5) Urine Bacteria None seen /hpf (None Seen) Urine Mucus Few (None Seen) Urine Glucose Normal mg/dL (Normal) Labs and/or images reviewed: Labs reviewed by me, Image(s) reviewed by me Assessment/Plan Assessment/Plan NSTEMI, rule out coronary artery disease troponin 75, consult by Dr. Lou soctt, Intermittent second degree type I atrioventricular block: [place] blocking Hyperlipidemia Asthma Marijuana use CORONARY COMPUTED TOMOGRAPHIC ANGIOGRAM SCHEDULED FOR 05/17/2025 Plan discussed with: Patient Date of Service: May 17, 2025 Billing Provider: LASHAUN PATEL MD Common Visit Codes: [id number] INP/OBS CARE(HIGH) LASHAUN PATEL MD May 17, 2025 09:47
--- NOTE | 2025-05-17 09:57 | ECG ---
[facility] Test Date: 2025-05-15 Test Time: 11:55:09 Pat Name: ALVARO LANE Department: Room: 0217T B Gender: F Gl Accountant: DEVONTE : 1990 Requested By: MELLY FUENTES Order Number: [id number] Reading MD: Tomy Trujillo Measurements Intervals [place] Rate: 45 P: 66 DC: 150 QRS: 68 QRSD: 101 T: 66 QT: 461 QTc: 399 Interpretive Statements Sinus bradycardia Probable left atrial enlargement Electronically Signed On 05-17-2025 15:09:54 PDT by Tomy Trujillo Please click the below link to view image of tracing.
[2025-05-17] MEDS: IOHEXOL 350 MG/ML 100ML IJ ONE (10:07)
[2025-05-17] MEDS: NITROGLYCERIN 0.4 MG SL TAB SL ONE (10:23)
--- NOTE | 2025-05-17 18:12 | DVH ---
EXAM: CT CT HEART/ CALCIUM SCORE REASON FOR EXAM: R/O CAD TECHNIQUE: CT of the heart was performed without IV contrast. COMPARISON: CT CT ANGIO HEART W/3D IMAGE on DOS: 05/17/25, NM CARDIOLITE MULTIPLE on DOS: 04/12/25, US ECHO 2D MODE CARDIAC DOP on DOS: 04/10/25 FINDINGS: There is no calcium within the coronary arteries. IMPRESSION: No coronary artery calcium.
--- NOTE | 2025-05-17 18:32 | DVH ---
CLINICAL HISTORY: R/O CAD TECHNIQUE: CT angiogram of the heart and coronary arteries was performed with and without intravenous contrast. This exam was performed according to our departmental dose optimization program. Up-to-da te CT equipment and radiation dose reduction techniques are utilized as appropriate. CTDI 73 DLP 1647 COMPARISON: CT CT HEART/ CALCIUM SCORE on DOS: 05/17/25, US ECHO 2D MODE CARDIAC DOP on DOS: 04/10/25 CORONARY ARTERIES-- The coronary arteries demonstrate normal origins and courses. The coronary system is right dominant. No coronary calcium. Left Main: Widely patent. No stenosis, calcium, or atherosclerotic lesion. Left Anterior Descending: Widely patent. No stenosis, calcium, or atherosclerotic lesion. The diagona l branches and major septal perforators are patent. Circumflex Artery: Widely patent. No stenosis, calcium, or atherosclerotic lesion. The obtuse margina l branches are patent. Right Coronary Artery: Widely patent. No stenosis, calcium, or atherosclerotic lesion. The acute isaura inal, posterior descending, and posterolateral branches are patent. CARDIAC ASSESSMENT-- The right atrium is normal in size and morphology. The right ventricle is normal in size and morphology, and exhibits normal myocardial thickness. The left atrium is normal in size and morphology, and measures 3.2 cm in dimension. The left ventricle is normal in size and measure 5.1 cm in end-diastolic dimension. The myocardial wa ll thickness is within normal limits, and measures up to 7 mm. No resting wall motion abnormality on multiphase cine images. The functional parameters are as follows: There is a small pericardial effusion. VASCULAR ASSESSMENT-- The aortic valve is trileaflet. The thoracic aorta is normal in caliber with no atherosclerotic calderón ge The pulmonary arteries are normal in size. ADDITIONAL FINDINGS-- There is residual thymic tissue within the anterior mediastinum. The lungs are appear clear. IMPRESSION: Unremarkable CTA examination of the coronary arteries. No stenosis or calcium. Right dominant system. Small pericardial effusion.
[2025-05-18 00:44] VITALS: BP 127/63; PULSE 55; RESP 18; TEMP 98.3; O2SAT 99
[2025-05-18 04:31] VITALS: BP 110/69; PULSE 47; RESP 17; TEMP 98.2; O2SAT 98
--- NOTE | 2025-05-18 07:40 | ECG ---
[facility] Test Date: 2025-05-15 Test Time: 10:50:33 Pat Name: ALVARO LANE Department: Room: 0217T B Gender: F Sanding Machine Operator: magda : 1990 Requested By: MELLY FUENTES Order Number: [id number] Reading MD: Tomy Trujillo Measurements Intervals [place] Rate: 55 P: 63 MI: 146 QRS: 67 QRSD: 103 T: 63 QT: 434 QTc: 416 Interpretive Statements Sinus rhythm Baseline wander in lead(s) I,II,aVR,aVF,V1,V2,V3,V4,V5,V6 Electronically Signed On 05-25-2025 13:13:21 PST by Tomy Trujillo Please click the below link to view image of tracing.
[2025-05-18 08:00] VITALS: PULSE 64; RESP 18; O2SAT 100
--- NOTE | 2025-05-18 08:32 | DVHPN2 ---
Consult Progress Note Date Seen: May 18, 2025 Subjective Review of Systems: CVS:Normal, RESPIRATORY:Normal, MSK:Abnormal, NEURO:Normal Other Systems: C/o slight chest wall pain, sharp in nature Objective vital signs Vital Sign Date Time Temp Pulse Resp B/P (MAP) Pulse Ox O2 Delivery O2 Flow Rate FiO2 05/18/25 08:00 64 18 100 Room Air* 0 21 05/18/25 04:31 98.2 110/69 (83) 98.2 Total Intake and Output 05/17/25 05/17/25 05/18/25 15:00 23:00 07:00 Intake Total 800 ml 900 ml Balance 800 ml 900 ml medications Current Medications Medications Dose Ordered Sig/Linda Route Start Time Stop Time Status Last Admin Dose Admin Albuterol 2.5 mg Q6HPRN PRN NEB 05/15/25 14:00 Cancel Aspirin 81 mg DAILY PO 05/16/25 10:00 05/17/25 10:47 81 MG Ondansetron HCl 4 mg Q4HP PRN IV 05/15/25 14:00 Nitroglycerin 0.4 mg Q5MINP PRN SL 05/15/25 14:00 Morphine Sulfate 2 mg Q30M PRN IV 05/15/25 14:00 Atorvastatin Calcium 20 mg HS PO 05/15/25 22:00 05/17/25 21:34 20 MG laboratory and microbiology Laboratory Tests 05/17/25 04:33 Test 05/17/25 04:33 Range/Units Serum Glucose 92 74-106 mg/dL Problem List/Assessment/Plan Problem List/Assessment/Plan Non-cardiac chest pain NSTEMI Type II: coronary artery disease ruled out Intermittent second degree type I atrioventricular block Hyperlipidemia Asthma Marijuana use Plan/Recommendation (Dr. West) A transthoracic echocardiogram done on this admission reveals an EF of 60%. A CCTA is negative for stenosis or calcium with a right dominant system. Presented with an intermittent second-degree type 1 (Mobitz 1) atrioventricular block, avoid AV adebayo blocking agents. Consider an outpatient event monitor for further evaluation. There is no further cardiac work-up indicated at this time. Signing off. Kindly call with any questions or concerns. Thank you for allowing us to care for this patient. This medical document was created using an electronic medical record system with voice recognition software and computerized dictation system. Although this document has been carefully reviewed, there might still be some phonetic and typographical errors. Occasional wrong-word or ``sound-alike substitutions may have occurred due to the inherent limitations of voice recognition software. These areas are purely typographical due to imperfections of the software programs and do not reflect any compromise in the patient's medical care. Please read the chart carefully and recognize, using context, where these substitutions have occurred. Plan discussed with: Patient, Other Date of Service: May 18, 2025 Billing Provider: AMANDA KONG Cardiology Common Codes: [id number] HOSP CARE(High AMANDA KONG May 18, 2025 08:32
[2025-05-18 09:04] VITALS: BP 114/78; PULSE 63; RESP 16; TEMP 97.8; O2SAT 100
--- NOTE | 2025-05-18 09:43 | DVHPN2 ---
Reviewed: Care Plan, H&P, Labs, Medications, Previous Orders, Radiology Changes from previous H/P or p: No Changes Objective Vitals Vital Signs Date Time Temp Pulse Resp B/P (MAP) Pulse Ox O2 Delivery O2 Flow Rate FiO2 05/18/25 09:04 97.8 63 16 114/78 (90) 100 97.8 05/18/25 08:00 Room Air* 0 21 Intake/Output Intake and Output 05/18/25 07:00 Intake Total 1700 ml Balance 1700 ml Intake Oral 1700 ml # Voids 7 # Bowel Movements 1 Medications Current Medications Medications Dose Ordered Sig/Linda Route Start Time Stop Time Status Last Admin Dose Admin Albuterol 2.5 mg Q6HPRN PRN NEB 05/15/25 14:00 Cancel Aspirin 81 mg DAILY PO 05/16/25 10:00 05/18/25 09:15 81 MG Ondansetron HCl 4 mg Q4HP PRN IV 05/15/25 14:00 Nitroglycerin 0.4 mg Q5MINP PRN SL 05/15/25 14:00 Morphine Sulfate 2 mg Q30M PRN IV 05/15/25 14:00 Atorvastatin Calcium 20 mg HS PO 05/15/25 22:00 05/17/25 21:34 20 MG Laboratory Results Laboratory Tests 05/17/25 04:33 Urinalysis Test 05/15/25 12:30 Urine Color Yellow (Yellow) Urine Clarity Clear (Clear) Urine pH 6.0 (5.0-9.0) Urine Specific [place] 1.026 (1.001-1.035) Urine Protein Negative (Negative) Urine Ketones Negative (Negative) Urine Blood Negative /uL (Negative) Urine Nitrite Negative (Negative) Urine Bilirubin Negative (Negative) Urine Urobilinogen Normal mg/dL (Negative) Urine Leukocyte Esterase Negative /uL (Negative) Urine RBC 2 /hpf (0 - 4) Urine Microscopic WBC 1 /HPF (0-5) Urine Squamous Epithelial Cells Few /hpf (<5) Urine Bacteria None seen /hpf (None Seen) Urine Mucus Few (None Seen) Urine Glucose Normal mg/dL (Normal) Labs and/or images reviewed: Labs reviewed by me, Image(s) reviewed by me Assessment/Plan Assessment/Plan NSTEMI, rule out coronary artery disease troponin 75, consult by Dr. 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
[2025-05-18] MEDS ORDERED: ASPI1TAB19 PO (09:52)
[2025-05-18] MEDS ORDERED: PANT40T PO (09:52)
--- NOTE | 2025-05-18 10:06 | DVHDS2 ---
Discharge Summary Date of Admission May 15, 2025 at 13:56 Date of Discharge: May 18, 2025 Admitting Diagnosis Chest pain Wounds: None Labs/Diagnostic Data: Laboratory Results Test 05/17/25 04:33 05/16/25 04:35 05/15/25 13:44 05/15/25 12:30 White Blood Count 7.3 10^3/uL (4.4-10.8) Red Blood Count 4.06 10^6/uL (4.0-5.20) Hemoglobin 12.3 g/dL (12.2-16.2) Hematocrit 36.8 % (36.0-46.0) Mean Corpuscular Volume 90.8 fL (80.0-100.0) Mean Corpuscular Hemoglobin 30.4 pg (28.0-32.0) Mean Corpuscular Hemoglobin Concent 33.5 g/dL (32.0-36.0) Red Cell Distribution Width 12.9 % (11.8-14.3) Platelet Count 218 10^3/uL (140-450) Mean Platelet Volume 9.2 fL (6.9-10.8) Neutrophils (%) (Auto) 50.0 % (37.0-80.0) Lymphocytes (%) (Auto) 40.4 % (10.0-50.0) Monocytes (%) (Auto) 7.6 % (0.0-12.0) Eosinophils (%) (Auto) 1.5 % (0.0-7.0) Basophils (%) (Auto) 0.5 % (0.0-2.0) Neutrophils # (Auto) 3.6 10 ^3/uL (1.6-8.6) Lymphocytes # (Auto) 2.9 10 ^3/uL (0.4-5.4) Monocytes # (Auto) 0.6 10 ^3/uL (0-1.3) Eosinophils # (Auto) 0.1 10 ^3/uL (0-0.8) Basophils # (Auto) 0 10 ^3/uL (0-0.2) Nucleated Red Blood Cells 0.1 % Sodium Level 140 mmol/L (136-145) Potassium Level 4.1 mmol/L (3.5-5.1) Chloride Level 108 mmol/L (98-107) Carbon Dioxide Level 24 mmol/L (20-31) Anion Gap 8 (5-15) Blood Urea Nitrogen 9 mg/dL (9-23) Creatinine 0.90 mg/dL (0.550-1.02) Glomerular Filtration Rate Calc 87 mL/min (>90) BUN/Creatinine Ratio 10.0 (10.0-20.0) Serum Glucose 92 mg/dL (74-106) Calcium Level 9.1 mg/dL (8.7-10.4) Beta HCG, Quantitative 0.4 mIU/mL (1.5-4.2) Troponin I High Sensitivity 75 ng/L (</=34) Urine Color Yellow (Yellow) Urine Clarity Clear (Clear) Urine pH 6.0 (5.0-9.0) Urine Specific [place] 1.026 (1.001-1.035) Urine Protein Negative (Negative) Urine Ketones Negative (Negative) Urine Blood Negative /uL (Negative) Urine Nitrite Negative (Negative) Urine Bilirubin Negative (Negative) Urine Urobilinogen Normal mg/dL (Negative) Urine Leukocyte Esterase Negative /uL (Negative) Urine RBC 2 /hpf (0 - 4) Urine Microscopic WBC 1 /HPF (0-5) Urine Squamous Epithelial Cells Few /hpf (<5) Urine Bacteria None seen /hpf (None Seen) Urine Mucus Few (None Seen) Urine Glucose Normal mg/dL (Normal) Urine Opiates Screen Neg (NEGATIVE) Urine Fentanyl Screen Neg (NEGATIVE) Urine Barbiturates Screen Neg (NEGATIVE) Urine Phencyclidine Screen Neg (NEGATIVE) Urine Amphetamines Screen Neg (NEGATIVE) Urine Benzodiazepines Screen Neg (NEGATIVE) Urine Cocaine Screen Neg (NEGATIVE) Urine Cannabinoids Screen Pos (NEGATIVE) Test 05/15/25 11:45 05/15/25 10:55 Thyroid Stimulating Hormone (TSH) 0.73 uIU/mL (0.55-4.78) Erythrocyte Sedimentation Rate 7 mm/hr (0-20) Hemoglobin A1c 4.7 % A1C (<5.7) Magnesium Level 2.0 mg/dL (1.6-2.6) C-Reactive Protein High Sensitivity < 0.02 mg/dL (<1.0) Triglycerides Level 65 mg/dL (< 150) Cholesterol Level 176 mg/dL (< 200) LDL Cholesterol 106 mg/dL (< 100) HDL Cholesterol 59 mg/dL (40-59) Other Laboratory Tests 05/17/25 04:33 Brief Hx & Hospital Course: 35-year-old female with a history of asthma hyperlipidemia marijuana abuse came in complaining of chest pain troponin slightly high 75 echo 60 percent ejection fraction patient has had a type 1 intermittent atrioventricular block advised to avoid isrrael blocking agents. Coronary computed tomographic angiogram negative for any calcium buildup. Cleared for discharge by Cardiology. Discharged home patient is asymptomatic prescription for aspirin pantoprazole sent to the pharmacy Consults/Reason for consult Cardiology Dr. West Operations or Procedures CCTA Condition at Discharge: Fair Final Diagnosis/Problems List NSTEMI, rule out coronary artery disease troponin 75, consult by Dr. 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6 MG PO BID Lidocaine (Ztlido), 1 PATCH TOP DAILY, (Reported) Lorazepam (Ativan Tablet), 1 TAB PO QHSP, (Reported) Pantoprazole Sodium Sesquihydr (Pantoprazole Sodium), 40 MG PO BID Trazodone Hcl (Trazodone Hcl), 1 TAB PO DAILY, (Reported) 39 (Time taken for discharge summary 39 minutes) Discharge Statement: "Patient was advised to return to the ER or call 911 if any headaches, dizziness, shortness of breath, chest pain, abdominal pain, bleeding, fevers, or worsening of medical condition. Patient was counseled about treatment plan, medications, possible side effects, patientverbalized understanding. All questions were answered to the best of my ability. This discharge took greater then 30 minutes in planning, reviewing documentation, counseling the patient, and discussing with other team members." ASSESSMENT ASSESSMENT Hospital Course Improved Assessment NSTEMI, rule out coronary artery disease troponin 75, consult by Dr. 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
[2025-05-18 11:59] VITALS: BP 117/70; TEMP 36.6
[2025-05-18 13:00] VITALS: BP 122/65; PULSE 49; RESP 17; TEMP 98.3; O2SAT 99
--- NOTE | 2025-05-20 07:25 | ECG ---
[facility] Test Date: 2025-05-17 Test Time: 10:04:31 Pat Name: ALVARO LANE Department: Respiratoy Room: 0217T B Gender: F [employer] Supervisor: LATISHA : 1990 Requested By: LASHAUN PATEL Order Number: [id number] Reading MD: Tomy Trujillo Measurements Intervals [place] Rate: 50 P: 69 TN: 146 QRS: 59 QRSD: 100 T: 55 QT: 439 QTc: 401 Interpretive Statements Sinus rhythm Baseline wander in lead(s) V5,V6 Electronically Signed On 05-25-2025 12:47:11 PST by Tomy Trujillo Please click the below link to view image of tracing.
== END 2025-05-18 13:40 | disposition home or self-care (01) | DRG 201 ==
LOC: ER 10:46 → OVERFLOW 13:56 → TELE-CENTR 16:46
PROVIDERS: ADMIT Family Medicine; ATTEND Family Medicine
DX: I44.1 Atrioventricular block, second degree (principal); I21.A1 Myocardial infarction type 2; E78.5 Hyperlipidemia, unspecified; J45.909 Unspecified asthma, uncomplicated; I25.10 Atherosclerotic heart disease of native coronary artery without angina pectoris; F12.90 Cannabis use, unspecified, uncomplicated; I25.2 Old myocardial infarction; Z82.49 Family history of ischemic heart disease and other diseases of the circulatory system
CPT/HCPCS: 36415; 71045; 75571; 75574; 80048; 80061; 80307; 81001; 83036; 83735; 84443; 84484; 84702; 85025; 85652; 86141; 93005; 93306; 99291; 99292; G0378

== ENCOUNTER 2025-06-21 19:55 | Emergency (ER) | payer MEDICAID ==
[~2025-06-21] VITALS: Ht 175.3 cm; Wt 82.7 kg
[~2025-06-21 19:55] MED LIST changes: +ASPI1TAB19 PO; +MAGN100T9 PO; +PANT40T PO
[2025-06-21 19:58] VITALS: BP 121/57; PULSE 62; RESP 20; TEMP 98.2; O2SAT 100
--- NOTE | 2025-06-21 20:33 | ED.PDOC ---
History of Present Illness(SKN HPI Comments 35y F who presents to the ED for chief complaint of abscess. Pt states she has an abscess located to the R groin area. Pt states she noticed it 3x weeks prior and states she has been using epson salt bath and warm compress but states it has not been helping. Pt states she used a needle to "pop" the abscess and noticed it contained green and yellow pus. Pt states this was a few days prior but states it has not helped and pt came to the ED for evaluation. Pt in the ED, has a noted abscess to the R side of her kyle and pelvic area. Pt otherwise denies any other symptoms. Chief Complaint: Abscess Time Seen by MD: 20:30 Primary Care Provider: UNKNOWN History of Present Illness: Medications, Allergies Allergies: Coded Allergies: NO KNOWN ALLERGIES (Unverified , 06/21/25) Home Meds Reported Medications Magnesium Bisglycinate (Mag Glycinate) 100 Mg Tab, 500 MG PO DAILY for supplement, TAB 06/21/25 Cetirizine HCl (Cetirizine Hydrochloride) 10 Mg Tab, 1 TAB PO DAILY for 30 Days, #30 05/17/25 Aspirin (Aspirin Low Dose) 81 Mg Tab, 1 TAB PO DAILY for 90 Days, #90 05/17/25 Trazodone Hcl (Trazodone Hcl) 50 Mg Tab, 1 TAB PO DAILY for INSOMNIA for 30 Days, #30 05/17/25 Lorazepam (ATIVAN TABLET) 0.5 Mg Tb, 1 TAB PO QHSP for 15 Days, #15 05/17/25 Albuterol Sulfate (Albuterol Sulfate Hfa) 108 Mcg/Act Aer, 2 PUFF PO Q4-6HR PRN for 16 Days, #18 05/17/25 Information Source: Patient Mode of Arrival: Ambulatory Brought in by: self Severity: Moderate Timing: Weeks Duration: Since onset Prehospital treatment: Treatment (warm compress) Past Medical History PAST MEDICAL HISTORY: Asthma, High Lipids, HI Surgical History: Denies all surgeries SUPERVISORY CBP OFFICER History: No Pertinent SUPERVISORY CBP OFFICER History Family History Family History: Reviewed,noncontributory to illness Social History Smoker: Non-Smoker Alcohol: Denies ETOH Use Drugs: Marijuana Lives In: Home Constitutional: denies: chills, diaphoresis, fatigue, fever, malaise, sweats, weakness, others EENTM: denies: blurred vision, double vision, ear bleeding, ear discharge, ear drainage, ear pain, ear ringing, eye pain, eye redness, hearing loss, mouth pain, mouth swelling, nasal discharge, nose bleeding, nose congestion, nose pain, photophobia, tearing, throat pain, throat swelling, voice changes, others Respiratory: denies: cough, hemoptysis, orthopnea, SOB at rest, shortness of breath, SOB with excertion, stridor, wheezing, others Cardiovascular: denies: chest pain, dizzy spells, diaphoresis, Dyspnea on exertion, edema, irregular heart beat, left arm pain, lightheadedness, palpitations, PND, syncope, others Gastrointestinal: denies: abdomen distended, abdominal pain, blood streaked bowels, constipated, diarrhea, dysphagia, difficulty swallowing, hematemesis, melena, nausea, poor appetite, poor fluid intake, rectal bleeding, rectal pain, vomiting, others Genitourinary: denies: abnormal vagina bleeding, burning, dyspareunia, dysuria, flank pain, frequency, hematuria, incontinence, pain, , vagina discharge, urgency, others Neurological: denies: dizziness, fainting, headache, left sided numbness, left sided weakness, numbness, paresthesia, pre-existing deficit, right sided numbness, right sided weakness, seizure, speech problems, tingling, tremors, weakness, others Musculoskeletal: denies: back pain, gout, joint pain, joint swelling, muscle pain, muscle stiffness, neck pain, others Integumetry: reports: wounds (R groin ); denies: bruises, change in color, change in hair/nails, dryness, laceration, lesions, lumps, rash, others Allergic/Immunocompromised: denies: Difficulty Healing, Frequent Infections, Hives, Itching, others Hematologic/Lymphatic: denies: anemia, blood clots, easy bleeding, easy bruising, swollen glands, others Endocrine: denies: excessive hunger, excessive sweating, excessive thirst, excessive urination, flushing, intolerance to cold, intolerance to heat, unexplained weight gain, unexplained weight loss, others Psychiatric: denies: anxiety, bipolar disorder, depression, hopeless, panic disorder, schizophrenia, sleepless, suicidal, others All Other Systems: Reviewed and Negative Physical Exam General Appearance: No Apparent Distress, Normal HEENT: Normal ENT Inspection, Pharynx Normal, TMs Normal Neck: Full Range of Motion, Non-Tender, Normal, Normal Inspection Respiratory: Chest Non-Tender, Lungs Clear, No Accessory Muscle Use, No Respiratory Distress, Normal Breath Sounds Cardiovascular: No Edema, No JVD, No Murmur, No Gallop, Normal Peripheral Pulses, Regular Rate/Rhythm Breast Exam: Deferred Gastrointestinal: No Organomegaly, Non Tender, No Pulsatile Mass, Normal Bowel Sounds, Soft Genitalia: Deferred Pelvic: Deferred Rectal: Deferred Extremities: No calf tenderness, Normal capillary refill, Normal inspection, Normal range of motion, Non-tender, No pedal edema Musculoskeletal : Apperance: Normal Neurologic: Alert, clearance representative II-XII nml as Tested, No Motor Deficits, Normal Affect, Normal Mood, No Sensory Deficits Cerebellar Function: Normal Reflexes: Normal Skin: Other (1 cm round abcess on R pelvic area. non-fluctuant, tender, and indurated) Lymphatic: No Adenopathy Was a procedure done? Was a procedure done?: No Differential Diagnosis (INTG) Differential Diagnosis: Puncture Wound Abscess: Abscess, Bacteremia, Cellulitis X-Ray, Labs, Meds, VS Vital Signs Date Time Temp Pulse Resp B/P (MAP) Pulse Ox O2 Delivery O2 Flow Rate FiO2 06/21/25 19:58 98.2 62 20 121/57 100 98.2 X-Ray, Labs, Meds, VS Comment Imaging was reviewed by this provider, there is no obvious pathological or acute disease process. Pending radiology review Labs were reviewed by this provider, no abnormalities Vital signs reviewed by this provider, clinically stable Time of 1ST Reevaluation: 21:00 Reevaluation 1ST: Unchanged Patient Education/Counseling: Diagnosis, Treatment, Need For Follow Up (Return to the emergency department in the next 24-48 hours if symptoms worsen. Follow up with PCP at next available appointment.) Family Education/Counseling: No Family Present SEPSIS Sepsis Screen Date sepsis recognized/suspect: Jun 21, 2025 Time Sepsis recognized/suspect: 2001 Recent Procedure: No On Antibiotic Therapy: No Respiratory Rate >20: No Heart Rate >90: No Temp<36 C (96.8 F) or >38.3 C: No SBP <90 or MAP <65 mmHG: No New Acute Mental Status Change: No Is the patient on CPAP, BIPAP,: No Vital Signs Date Time Temp Pulse Resp B/P (MAP) Pulse Ox O2 Delivery O2 Flow Rate FiO2 06/21/25 19:58 98.2 62 20 121/57 100 98.2 Departure 1 Departure Time of Disposition: 20:37 Impression: Primary Impression: Abscess Disposition: HOME / SELF CARE / HOMELESS Condition: Stable e-Prescriptions Ibuprofen Micronized (Ibuprofen) 800 Mg Tab 800 MG PO TID PRN, #30 TAB Prov: HANS APONTE 06/21/25 Sulfamethoxazole W/Trimethopri (Bactrim Ds Tablet) 1 Tab Tb 1 TAB PO BID for 7 Days, #14 TAB Prov: HANS APONTE 06/21/25 Discharged With: Self Critical Care Note Critical Care Time?: No Stability Stability form required: No Heart Score Heart Score: Heart Score Response (Comments) Value History N/A 0 EKG N/A 0 Age N/A 0 Risk Factors N/A 0 Troponin N/A 0 Total 0 I personally scribed for HANS APONTE (MALACHI) on 06/21/25 at 20:33. Electronically submitted by Lizzy LUNSFORD). HANS APONTE Jun 21, 2025 20:33
[2025-06-21] MEDS ORDERED: IBUP-1455 PO (20:38)
[2025-06-21] MEDS ORDERED: BACDST PO (20:38)
== END 2025-06-21 22:45 | disposition home or self-care (01) ==
LOC: ER 19:57
DX: L02.214 Cutaneous abscess of groin (principal); J45.909 Unspecified asthma, uncomplicated; Z79.899 Other long term (current) drug therapy

== ENCOUNTER 2025-06-24 07:31 | Day surgery (SDC) | payer MEDICAID ==
[2025-06-21 15:32] LABS: Hematocrit 38.3 % (36.0-46.0); Hemoglobin 12.5 g/dL (12.2-16.2); Mean Corpuscular Hemoglobin 29.5 pg (28.0-32.0); Mean Corpuscular Volume 90.6 fL (80.0-100.0); Nucleated Red Blood Cells % 0.0 %
[2025-06-21 15:54] LABS: INR 0.97 (0.9-1.15); Partial Thromboplastin Time 28.3 SEC (24.5-34.5); Prothrombin Time 10.3 sec (9.3-11.8)
[2025-06-21 16:08] LABS: Anion Gap 8 (5-15); Carbon Dioxide 27 mmol/L (20-31); Chloride 105 mmol/L (98-107); Potassium 4.3 mmol/L (3.5-5.1); Sodium 140 mmol/L (136-145)
[2025-06-21 16:10] LABS: Calcium 9.9 mg/dL (8.7-10.4)
[2025-06-21 16:15] LABS: BUN/Creatinine Ratio 8.4 (10.0-20.0); Glucose 104 mg/dL (74-106)
[2025-06-21 16:23] LABS: Blood Urea Nitrogen 8 mg/dL (9-23)
[~2025-06-24] VITALS: Ht 172.7 cm; Wt 81.6 kg
[2025-06-24] VITALS (9 sets, daily range): BP systolic 101–116; BP diastolic 60–73; PULSE 47–60; RESP 11–19; TEMP 98.1; O2SAT 99–100
[~2025-06-24 07:31] MED LIST changes: +BACDST PO; +IBUP-1455 PO
[2025-06-24] MEDS: IOHEXOL 350 MG/ML 100ML IJ ONE ×2 (10:19→10:59)
[2025-06-24] MEDS ORDERED: MIDAZOLAM HCL 2MG/2ML 2ml VIAL (1mg/ml) ONE (10:34)
[2025-06-24] MEDS: SODIUM CHL 0.9% 0 ML ONE (10:59)
[2025-06-24] MEDS: fentaNYL CITRATE 100 MCG/2 ML VL ONE (10:59)
[2025-06-24] MEDS: ANGIOMAX 250 MG VIAL IV ONE (10:59)
[2025-06-24] MEDS: LIDOCAINE 2%HCL (LOCAL ANESTH.) INJ 20ML MDV ONE (11:00)
--- NOTE | 2025-06-24 11:11 | DVHHP ---
ADMIT DATE: 06/24/2025 HISTORY OF PRESENT ILLNESS: The patient who is 35 years old with history of increasing shortness of breath. The patient's echocardiogram shows diminished left ventricular ejection fraction with marked bradycardia as well on EKG. The patient now to undergo left heart catheterization to define coronary anatomy to rule out dilated cardiomyopathy. Risks and benefits were explained to the patient. The patient understands and agrees. The patient has a history of hypertension, adequately controlled, but now she is still having increasing shortness of breath. Following echocardiography, we titrated up on that load. Beta-rica was used low dose, but has to be titrated down because of the bradycardia. Furthermore, patient is also markedly lethargic as well, and therefore, even though the coronary anatomy may be normal, she may still require pacing. Risks and benefits were explained to the patient. The patient agrees and understands. REVIEW OF SYSTEMS: She denies any fever, chills, melena, hematochezia, hematemesis, hemoptysis, or hematuria. Denies any bleeding diathesis. No history of connective tissue disease. No disease of any environmental toxin exposure. She denies any seizure disorder. Denies any GI symptomatology such as irritable bowel syndrome or inflammatory bowel disease. No connective tissue disease as well. Denies any history of trauma. Denies any history of lung history as well such as COPD, asthma, etc. He denies any history of any neurological disorder such as seizure disorder, movement disorder. Denies any history of CVA. SOCIAL HISTORY: No drug use. No alcohol use. No tobacco use. PHYSICAL EXAMINATION: VITAL SIGNS: Blood pressure is 110/80, pulse 70, O2 saturation 98% on room air. HEENT: Pupils are reactive. Funduscopic exam shows no AV nicking, no exudates, no papilledema. Sclerae anicteric. Extraocular muscles are intact. Tympanic membranes are negative. Oral mucosa moist. Posterior pharynx without exudate. NECK: No JVD. Carotid pulses are 2+ and symmetrical. No cervical adenopathy. No supraclavicular adenopathy. No axillary adenopathy. PULMONARY: Clear to auscultation on all quadrants. No rhonchi, no wheezes, no egophony, tympanic or percussion. CARDIOVASCULAR: Regular rate. PMI is diffuse laterally and inferiorly displaced. ABDOMEN: Soft, nontender. Normal bowel sounds. Stool guaiac is negative. Liver approximately 5 cm. Spleen tip nonpalpable. NEUROLOGIC: Neurologically, the patient is intact. EXTREMITIES: The patient has 2+ pulses on the lower extremity as well. DIAGNOSTIC DATA: EKG shows sinus bradycardia, otherwise unremarkable. ASSESSMENT: The patient with: * Cardiomyopathy, most likely dilated cardiomyopathy at this time. * The patient will be undergoing left heart catheterization to find coronary anatomy. RECOMMENDATIONS: We will make further recommendations after the angiogram. Tip Butts MD SA/RIZWANA TID: [id number] RECEIPT: [id number]
--- NOTE | 2025-06-24 11:31 | DVHOP ---
DATE OF SURGERY: 06/24/2025 PROCEDURES PERFORMED: * Selective left and right coronary angiography. * Ventriculogram. * Conscious sedation. * Right iliac angiography. PROCEDURE: The patient was prepped and draped in sterile conditions. 1% Xylocaine used to anesthetize the right groin. Using a Cook needle, the right femoral artery was engaged with the Seldinger technique, a 6-Mauritian in the right femoral artery. Using a 6-Mauritian JL4 catheter and a 6-Mauritian JR4 catheter, selective left and right coronary angiography was performed. Using a 6-Mauritian pigtail catheter, a ventriculogram was done. Total contrast used was 40 mL of Optiray. Total fluoroscopy time was 1 minute. RESULTS: * Left main normal. * Left anterior descending artery was normal. * Circumflex was normal. * Right coronary artery was normal. It is a right dominant system. Left ventricular function shows global hypokinesis with an estimated EF of around 35% with an LVEDP of 15 mmHg with no gradient across the aortic valve. Thus, the patient with a normal coronary anatomy and dilated cardiomyopathy, diminished left ventricular ejection fraction. The patient with heart failure with reduced ejection fraction. The patient now will be reassessed. She has marked bradycardia during angiography, heart rate dropping down into the 40s. The patient may require chronotropic support. Furthermore, with a depressed left ventricular ejection fraction, he may be a candidate for AICD once the patient has adequately been treated with medication. Tip Butts MD SA/GIANCARLO TID: [id number] RECEIPT: [id number]
--- NOTE | 2025-06-24 18:41 | DVHDS ---
DATE OF DISCHARGE: 06/24/2025 DISCHARGE DIAGNOSES: Dilated cardiomyopathy, EF around 35%, normal coronary anatomy. HOSPITAL COURSE: The patient underwent coronary angiography. No coronary perfusion abnormality was noted. However, the patient was markedly bradycardic. LVEDP was 15 mmHg with no gradient across the aortic valve. The patient is being discharged home, stable at the time of discharge. DISPOSITION: Home. ACTIVITY: As instructed. DIET: 2 g sodium diet. Tip Butts MD SA/TYRONE TID: [id number] RECEIPT: [id number]
== END 2025-06-24 13:30 | disposition home or self-care (01) ==
LOC: CATH 07:31
PROVIDERS: ATTEND Internal Medicine Cardiovascular Disease
DX: I42.0 Dilated cardiomyopathy (principal); R00.1 Bradycardia, unspecified; R06.02 Shortness of breath; I10 Essential (primary) hypertension; F12.90 Cannabis use, unspecified, uncomplicated; F17.210 Nicotine dependence, cigarettes, uncomplicated; F41.9 Anxiety disorder, unspecified; Z79.82 Long term (current) use of aspirin; Z79.899 Other long term (current) drug therapy; Z82.49 Family history of ischemic heart disease and other diseases of the circulatory system
CPT/HCPCS: 36415; 80048; 84702; 85025; 85610; 85730; 93458; C1760; C1769; C1894; J1644; J2250; J3010; Q9967; 99152